=== PATIENT | male | born 1995 | race Caucasian/White ===

== ENCOUNTER 2017-09-07 01:29 | Inpatient (IN) | payer SELFPAY ==
[2017-09-07] MEDS ORDERED: ONDANSETRON 4 MG/2 ML VIAL IVP ONE (01:40)
[2017-09-07] MEDS ORDERED: NS 1,000 ML IV ONE (01:40)
--- NOTE | 2017-09-07 01:40 | EDPHY ---
H & P Stated Complaint: Blood in stool last 4 hours, lightheaded. HPI/ROS: HPI CHIEF COMPLAINT: Blood per rectum, lightheadedness, nausea vomiting HISTORY OF PRESENT ILLNESS: Patient otherwise healthy 22-year-old male, not on any anticoagulation, presents emergency room with blood per rectum. Patient reports dark blood per rectum. No black stools. He states that he had a bowel movement 6 times with mainly just blood. Very little stool. He also states he felt lightheaded and had an episode of nausea with vomiting. No blood. He denies any abdominal pain. States he has never had this before. States that he did have a hemorrhoid the blood but that was drops of bright red blood. Decided come the emergency room as he had persistent bleeding per rectum. Past Medical History: Denies medical history Past Surgical History: Denies surgical history Social History: Denies daily use of drugs alcohol tobacco. Family History: Noncontributory ROS REVIEW OF SYSTEMS: A comprehensive 10 point review of systems is otherwise negative aside from elements mentioned in the history of present illness. Exam Constitutional appears well nontoxic triage nursing summary reviewed, vital signs reviewed, awake/alert. Eyes normal conjunctivae and sclera, EOMI, PERRLA. HENT normal inspection, atraumatic, moist mucus membranes, no epistaxis, neck supple/ no meningismus, no raccoon eyes. Respiratory clear to auscultation bilaterally, normal breath sounds, no respiratory distress, no wheezing. Cardiovascular rate normal, regular rhythm, no murmur, no edema, distal pulses normal. Gastrointestinal soft, non-tender, no rebound, no guarding, normal bowel sounds, no distension, no pulsatile mass. Genitourinary no CVA tenderness. Musculoskeletal no midline vertebral tenderness, full range of motion, no calf swelling, no tenderness of extremities, no meningismus, good pulses, neurovascularly intact. Skin pink, warm, & dry, no rash, skin atraumatic. Neurologic awake, alert and oriented x 3, AAOx3, moves all 4 extremities equally, motor intact, sensory intact, CN II-XII intact, normal cerebellar, normal vision, normal speech. Psychiatric normal mood/affect. Heme/Lymph/Immune no lymphadenopathy. Differential Diagnosis: Includes but is not limited to in a particular order acute GI bleed, diverticular bleed, lower GI bleed, ulcer, hemorrhoid bleed Medical Decision Making: Plan for this patient IV establishment with blood draw , check H&H, rectal exam. Re-evaluation: Rectal exam: Bright red blood per rectum. No palpable mass. No internal or palpable hemorrhoids however removal of blood shows rather large amount of bright red blood. Blood work reviewed. H&H reviewed. Slightly low. Rectal exam showed rather large amount of blood on glove. Due to this patient be admitted for GI bleed. Will give a dose of Protonix Protonix strep in case his upper GI bleed. However patient remains hemodynamically stable does not endorse any epigastric pain. Most likely lower GI bleed. Source: Patient - Personal History Current Tetanus/Diphtheria Vaccine: Unsure Current Tetanus Diphtheria and Acellular Pertussis (TDAP): Unsure - Medical/Surgical History Hx Asthma: No Hx Chronic Respiratory Disease: No Hx Diabetes: No Hx Cardiac Disease: No Hx Renal Disease: No Hx Cirrhosis: No Hx Alcoholism: No Hx HIV/AIDS: No Hx Splenectomy or Spleen Trauma: No Other PMH: Hemhoids, ear tube surgeries. - Social History Smoking Status: Former smoker Constitutional: Initial Vital Signs Temperature (C) 36.6 C 09/07/17 01:32 Heart Rate 69 09/07/17 01:32 Respiratory Rate 18 09/07/17 01:32 Blood Pressure 118/59 L 09/07/17 01:32 O2 Sat (%) 98 09/07/17 01:32 O2 Delivery Mode Room Air Allergies/Adverse Reactions: tree nut Allergy (Severe, Verified 09/07/17 01:36) Anaphylaxis Home Medications: Medication Instructions Recorded Carboxymethylcellulose 1% [Refresh 1 drop EACHEYE DAILY PRN 09/07/17 Celluvisc (*)] EPINEPHrine [Epipen 0.3 MG] 0.3 mg IM ONCE PRN 09/07/17 Ibuprofen [Motrin (*)] 200 mg PO DAILY PRN 09/07/17 Multivitamins [Multivitamin (*)] 1 each PO DAILY 09/07/17 diphenhydrAMINE [Benadryl 25 MG 25 mg PO DAILY PRN 09/07/17 (*)] Medical Decision Making - Data Points Laboratory Results: Laboratory Results 09/07/17 01:48 09/07/17 01:48 Medications Given: Pantoprazole Sodium 80 mg/ (Sodium Chloride) 100 mls @ 10 mls/hr IV Q10H TARI Stop: 04/17/18 02:59 Last Admin: 09/07/17 13:38 Dose: 100 mls Sodium Chloride (Ns) 1,000 mls @ 100 mls/hr IV CONT TARI Stop: 03/06/18 04:44 Last Admin: 09/07/17 13:38 Dose: 1,000 mls Lorazepam (Ativan Injection) 0.5 - 1 mg IVP Q8HRS PRN PRN Reason: Anxiety, Unable to Take PO Stop: 03/06/18 04:42 Last Admin: 09/07/17 05:05 Dose: 1 mg Discontinued Medications Sodium Chloride (Ns) 1,000 mls @ 0 mls/hr IV EDNOW ONE; Wide Open PRN Reason: Protocol Stop: 09/07/17 01:41 Last Admin: 09/07/17 01:53 Dose: 1,000 mls Pantoprazole Sodium 40 mg/ (Sodium Chloride) 100 mls @ 200 mls/hr IV EDNOW ONE Stop: 09/07/17 03:19 Last Admin: 09/07/17 03:29 Dose: 100 mls Ondansetron HCl (Zofran) 4 mg IVP EDNOW ONE Stop: 09/07/17 01:41 Last Admin: 09/07/17 04:45 Dose: Not Given Polyethylene Glycol/Electrolytes (Gavilyte - G) 4,000 ml PO ONCE ONE Stop: 09/07/17 10:35 Last Admin: 09/07/17 11:43 Dose: 4,000 ml Departure - Departure Disposition: [facility] Inpatient Acute Clinical Impression: GI bleed Qualifiers: GI bleed type/associated pathology: unspecified gastrointestinal hemorrhage type Qualified Code(s): K92.2 - Gastrointestinal hemorrhage, unspecified Condition: Fair
[2017-09-07 01:58] LABS: PLATELET COUNT 381 10^3/uL (150-400)
[2017-09-07 02:07] LABS: INR 1.07 (0.83-1.16); PROTIME(PATIENT) 13.8 SEC (12.0-15.0)
[2017-09-07] MEDS ORDERED: PANTOPRAZOLE SODIUM 40 MG in NS 100 ML IV ONE (02:50)
[2017-09-07] MEDS ORDERED: PROMETHAZINE HCL 25 MG/ML INJ IVP PRN (04:43)
[2017-09-07] MEDS ORDERED: LORazepam 2 MG/ML INJ IVP PRN (04:43)
[2017-09-07] MEDS ORDERED: ONDANSETRON 4 MG/2 ML VIAL IVP PRN (04:43)
[2017-09-07] MEDS: PANTOPRAZOLE SODIUM 80 MG in NS 100 ML IV SCH ×3 (05:01→22:13)
[2017-09-07] MEDS: NS 1,000 ML IV SCH ×2 (05:01→13:38)
--- NOTE | 2017-09-07 05:30 | GHP ---
[f rep st] HISTORY AND PHYSICAL DATE OF ADMISSION: 09/07/2017 SOURCE: The patient provides history, appears reliable. Case discussed with ED provider and EMR reviewed. CHIEF COMPLAINT: Blood per rectum. HISTORY OF PRESENT ILLNESS: This is a very pleasant 22-year-old gentleman with no significant past medical history who presents to the emergency department today with complaints of sudden onset of bloody bowel movements. The patient reports approximately 9 o'clock he developed a sense of urgency, and went to the bathroom at work where he had 6 large volume pure frantz bloody dark bloody stools. The patient denies any abdominal pain or cramping. He does report some associated lightheadedness after several bowel movements. He also notes that he developed 1 episode of nausea and vomiting without any hematemesis. The patient reports any known sick contacts. He denies any shortness of breath or palpitations. The patient denies any fevers or chills. The patient without any recent travel or camping. REVIEW OF SYSTEMS: GENERAL: The patient denies any fevers or chills. SKIN: No rashes or sores. ENT: The patient denies any congestion, sore throat, but does complain of some dry mouth. EYES: The patient denies any acute changes in vision or ocular pain. CV: The patient denies any chest pain or palpitations. RESPIRATORY: No shortness of breath or cough. GI: Abdominal pain as noted above with 1 episode of nausea. : No dysuria or hematuria. MUSCULOSKELETAL: Denies any joint pain or myalgias. NEURO: The patient denies any numbness, tingling, focal weakness, or headache. Remainder of review of systems negative except as noted above. ALLERGIES: Tree nuts, the patient develops anaphylaxis. HOME MEDICATIONS: Multivitamin daily, Benadryl p.r.n., Advil p.r.n. PAST MEDICAL HISTORY: Significant for hemorrhoids. PAST SURGICAL HISTORY: Significant for bilateral tympanostomy tubes. FAMILY HISTORY: Paternal uncle with history of stomach cancer. Paternal grandfather and father with history of hypertension. SOCIAL HISTORY: The patient is employed. He denies any illicit drugs. He does smoke on a very rare occasion, as well as has a few drinks on a weekly basis, but nothing daily. CODE STATUS: Full. PHYSICAL EXAMINATION: VITAL SIGNS: On arrival, blood pressure 118/59, heart rate 69, respiratory rate 18, O2 saturation 98% on room air, temperature 36.6. Current vitals blood pressure 119/53, heart rate 68, respiratory rate 16, O2 saturation 96% on room air. GENERAL: No acute distress. Very pleasant, young adult male, is lying quietly in bed. HEAD: Normocephalic, atraumatic. EYES: Extraocular muscles intact. Pupils equal, round, slightly decreased reactivity to light bilaterally but symmetric. No scleral icterus or conjunctival injection. ENT: Mucous membranes appear slightly dry. No pharyngeal erythema or exudates. Dentition intact. NECK: Supple. Trachea midline. CV: Regular rate and rhythm. No murmurs, rubs, or gallops appreciated. RESPIRATORY: Lungs clear to auscultation bilaterally. No wheezes, rales, or rhonchi. ABDOMEN: Hypoactive bowel sounds. Nontender to palpation. : No suprapubic tenderness to palpation. No Mortensen catheter in place. MUSCULOSKELETAL: Strength grossly intact. Moves all extremities. Strength 5/5 in upper and lower extremities. NEURO: Grossly nonfocal. No facial drooping. Moves all extremities. Sensation is intact. PSYCH: The patient is pleasant, cooperative , and without evidence of anxiety. LABORATORY STUDIES: WBC is 9.62, H and H 12.7 and 37.4, MCV of 92.3, platelet count is 381. PT is 13.8, INR 1.07, PTT is 22.6. Sodium is 140, potassium 4.1, chloride 103, CO2 is 25, BUN 15, creatinine is 0.9 , GFR greater than 60, glucose 112, calcium 9.3, total bilirubin 0.6, ALT is 22 , AST is 22, alkaline phosphatase is 65, total protein 6.4, albumin is 4.2, lipase is 110. ASSESSMENT AND PLAN: Ofelia 22-year-old gentleman, who presents with complaints of acute onset of gastrointestinal bleeding. 1. Lower gastrointestinal bleeding suspected with dark frantz blood. The patient with previous history of hemorrhoids. Differential diagnosis including hemorrhoid, arteriovenous malformation, diverticular bleed. Less likely colitis and lower suspicion for upper gastrointestinal bleeding given lack of report of melena and acute onset of symptoms. The patient has not had any further episodes since arrival to the floor. We will continue to monitor, repeat a hemoglobin and hematocrit, given the patient has been symptomatic. Further discussions with Gastroenterology tomorrow pending the patient's hemoglobin and hematocrit and further episodes to consider possibly an outpatient evaluation as current symptoms have stopped. For now, the patient will remain n.p.o. while we await repeat blood count and Gastroenterology recommendations. 2. Acute blood loss anemia. Hemoglobin and hematocrit are less than upper limits of normal. The patient had reported some symptoms with acute loss of blood. We will continue monitor hemoglobin and hematocrit and do not anticipate any need for transfusion at this time. 3. Fluid, electrolyte, nutrition. Continue with intravenous fluids overnight. Electrolyte replacement p.r.n. Hold off on diet pending further discussions with Gastroenterology. 4. Prophylaxis. Sequential compression devices. Holding anticoagulation in the setting of acute bleeding. Protonix was given in the emergency department x1. We will hold at this time given the patient without symptoms. 5. Code status. Full. 6. Disposition. The patient admitted to observation on the medical floor at this time pending repeat laboratory testing and Gastroenterology recommendations. /[id number]/MODL MTDD
--- NOTE | 2017-09-07 09:23 | HOSPPROG ---
Hospitalist Progress Note Assessment/Plan: Patient is a 22-year-old gentleman who presented the emergency room with sudden onset of bloody bowel movements. He developed a sense of urgency andWsuch 6 large frantz blood stools. Today is my 1st encounter with the patient. Chart reviewed. Spoke with Gastroenterology who will see the patient today. will continue NPO status. * likely lower gastrointestinal bleed with dark frantz blood. -hemoglobin hematocrit have trended down -will continue NPO status -only significant history is hemorrhoids * acute blood loss anemia -will need an endoscopy, possible colonoscopy/ likely tomorrow. * plan. GI to see him today. Subjective: Vlad has no c/o pain. Objective: Vital Signs Temp Pulse Resp BP Pulse Ox 36.6 C 128 H 16 119/58 L 96 09/07/17 08:06 09/07/17 08:06 09/07/17 08:06 09/07/17 08:06 09/07/17 08:06 Laboratory Results 09/07/17 05:22 09/06/17 09/07/17 09/08/17 05:59 05:59 05:59 Intake Total 1100 Balance 1100 PT 13.8 SEC (12.0-15.0) 09/07/17 01:48 INR 1.07 (0.83-1.16) 09/07/17 01:48 - Physical Exam Constitutional: no apparent distress, appears nourished, not in pain Eyes: PERRL Ears, Nose, Mouth, Throat: hearing normal Respiratory: no respiratory distress Skin: warm Musculoskeletal: full muscle strength Neurologic: AAOx3 Psychiatric: interacting appropriately ICD10 Worksheet Patient Problems: Problems Problem Status Onset GI bleed Acute
[2017-09-07] MEDS ORDERED: PEG 3350/NA SULF,BICARB,CL/KCL (GAVILYTE-G) 4000 ML BTL PO ONE (10:34)
--- NOTE | 2017-09-07 11:15 | GCON ---
[f rep st] CONSULTATION REFERRING PHYSICIAN: Antonieta Dixon NP REASON FOR CONSULTATION: Rectal bleeding. HISTORY OF PRESENT ILLNESS: Briefly, I was asked by Antonieta Dixon to see the patient for the evalu ation of rectal bleeding. He is a 22-year-old healthy male who presented to the emergency room after the sudden onset of diarrhea. He had urgency, abdominal cramping, and 6 large, frankly bloody bowel movements. He reports no prior history of bleeding. He reports he felt well on the day prior to hi s admission. At that time, he also noticed some fatigue and weakness. He is on no blood-thinning medicines. He does not take any nonsteroidal anti-inflammatory therapies. He denies sick contacts. He has had no fevers, chills or sweats. He has had no nausea or vomiting . He denies any recent travel, unusual food choices, or exposure to unsanitary conditions. REVIEW OF SYSTEMS: A complete 10-point review was undertaken with the patient and is negative, excep t for the pertinent positives and negatives in the History of Present Illness. ALLERGIES: Tree nuts, but no medication allergies. MEDICATIONS: Home medicines were Advil as needed, Benadryl as needed, and a multivitamin. PAST MEDICAL HISTORY: Includes hemorrhoids, for which he has had scant rectal bleeding periodically. PAST SURGICAL HISTORY: Includes tympanostomy tubes. FAMILY HISTORY: He has had an uncle with stomach cancer. He has a history of heart disease in his p aternal line. SOCIAL HISTORY: He does not use drugs. He smokes rarely. He drinks on a weekly basis, but not ye y. PHYSICAL EXAM: GENERAL: This is a well-developed male, in no apparent distress. HEENT: His pupils are equal, round, reactive to light and accommodation. His sclerae are nonicteric. His oropharynx is clear. NECK: Supple, without lymphadenopathy. HEART: Regular, without murmur. LUNGS: His dania ath sounds are equal bilaterally, with good respiratory effort. ABDOMEN: Soft, nontender, with norm oactive bowel sounds. EXTREMITIES: Free of cyanosis, clubbing, and edema. NEURO: Grossly nonfocal . SKIN: Warm and dry. MUSCULOSKELETAL: His joints show no arthritis. PSYCH: His psych exam reve als normal mood and affect. LABORATORY TESTING: White count of 9.6, hemoglobin of 12.7, hematocrit of 37.4, which has fallen ove rnight to a hemoglobin of 10.7 and hematocrit of 32.0. The patient reports no prior history of anemi a. Comprehensive metabolic panel was normal. IMPRESSION/RECOMMENDATIONS: The patient has had acute rectal bleeding with an associated anemia. He has no prior history. Differential diagnosis might include arteriovenous malformation, diverticula, Meckel's, even upper gastrointestinal sources of bleeding. Given his anemia, ongoing symptoms, I re commend he remain in the hospital for an endoscopic evaluation. We will plan for upper and lower end oscopy to occur. Pending the results of the upper and lower endoscopy, we can proceed with small-bow el evaluation if needed. Tagged red cell scan, IR interventions, etc., are also potentially useful m aneuvers, pending the results of endoscopic evaluation. /[id number]/MODL
--- NOTE | 2017-09-07 14:12 | ASMTCMCOM ---
CM Note CM Note Notes: Pt. is a 22-year-old man admitted w/ bloody stools and acute blood loss anemia. Pt. w/ hx. hemorrhoids. 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 Kenaytta/Radha plans to assess Pt. for Medicaid benefits. Currently in self-pay status. Anticipate independent d/c when ready. CM available should d/c POC change. Date Signed: 09/07/2017 02:11 PM Electronically Signed By:Alycia Baker LCSW
--- NOTE | 2017-09-07 14:12 | ASMTCMCOM ---
CM Note CM Note Notes: Pt. is a 22-year-old man admitted w/ bloody stools and acute blood loss anemia. Pt. w/ hx. hemorrhoids. 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 Kenyatta/Radha plans to assess Pt. for Medicaid benefits. Currently in self-pay status. Anticipate independent d/c when ready. CM available should d/c POC change. Date Signed: 09/07/2017 02:11 PM Electronically Signed By:Alycia Baker LCSW
[2017-09-08] MEDS: NS 1,000 ML IV SCH ×2 (00:31→10:37)
[2017-09-08] MEDS: PANTOPRAZOLE SODIUM 80 MG in NS 100 ML IV SCH ×3 (00:32→20:04)
--- NOTE | 2017-09-08 04:52 | HOSPPROG ---
Hospitalist Progress Note Assessment/Plan: Hospitalist Night Float Note Paged by RN. reporting decline in pt H/H. Patient refused transfusion and arrived to bedside to discuss further with patient. He is Sabianism and cannot accept any blood products. Reviewed patient current h/h and reassured at this time VS are stable. options at this time are for IV iron. I did not offer EPO to patient as I am awaiting to verify with pharmacy synthetic (nonalbumin) formulary. At this time will plan to repeat H/H. pt currently asymptomatic but advised further decline will warrant consideration for treatment options. Patient completed prep and anticipate colonoscopy this AM. Patient father at bedside and questions answered from both patient and father. Objective: Vital Signs Temp Pulse Resp BP Pulse Ox 36.9 C 92 16 105/45 L 98 09/08/17 03:24 09/08/17 03:24 09/08/17 03:24 09/08/17 03:24 09/08/17 03:24 Laboratory Results 09/08/17 01:30 09/06/17 09/07/17 09/08/17 05:59 05:59 05:59 Intake Total 1100 5265 Balance 1100 5265 PT 13.8 SEC (12.0-15.0) 09/07/17 01:48 INR 1.07 (0.83-1.16) 09/07/17 01:48 ICD10 Worksheet Patient Problems: Problems Problem Status Onset GI bleed Acute
[2017-09-08] MEDS ORDERED: LR 1,000 ML IV ONE (06:57)
--- NOTE | 2017-09-08 07:35 | PDANEPAE ---
ANE History of Present Illness 22 year old male with GI bleed presents for endoscopy and colonoscopy. ANE Past Medical History - Cardiovascular History Hx Hypertension: No Hx Arrhythmias: No Hx Chest Pain: No Hx Coronary Artery / Peripheral Vascular Disease: No Hx CHF / Valvular Disease: No Hx Palpitations: No - Pulmonary History Hx COPD: No Hx Asthma/Reactive Airway Disease: No Hx Recent Upper Respiratory Infection: No Hx Oxygen in Use at Home: No Hx Sleep Apnea: No Sleep Apnea Screening Result - Last Documented: Negative - Endocrine History Hx Diabetes: No Hypothyroid: No Hyperthyroid: No Obesity: no - Renal History Hx Renal Disorders: No - Liver History Hx Hepatic Disorders: No - Neurological & Psychiatric Hx Hx Neurological and Psychiatric Disorders: No - Cancer History Hx Cancer: No - GI History GERD: no Hx Gastrointestinal Disorders: Yes Gastrointestinal History Comment: GI bleed - Chronic Pain History Chronic Pain: No ANE Review of Systems Review of systems is: negative Review of Systems: - Exercise capacity Exercise capacity: >=4 METS ANE Patient History - Allergies Allergies/Adverse Reactions: tree nut Allergy (Severe, Verified 09/07/17 01:36) Anaphylaxis NO BLOOD PRODUCTS Allergy (Uncoded 09/08/17 04:35) - Home Medications Home medications: home medication list seen and reviewed Home Medications: Carboxymethylcellulose 1% [Refresh Celluvisc (*)] 1 drop EACHEYE DAILY PRN 09/07 [Last Taken Unknown] EPINEPHrine [Epipen 0.3 MG] 0.3 mg IM ONCE PRN 09/07/17 [Last Taken Unknown] Ibuprofen [Motrin (*)] 200 mg PO DAILY PRN 09/07/17 [Last Taken Unknown] Multivitamins [Multivitamin (*)] 1 each PO DAILY 09/07/17 [Last Taken Unknown] diphenhydrAMINE [Benadryl 25 MG (*)] 25 mg PO DAILY PRN 09/07/17 [Last Taken Unknown] - NPO status NPO Status: no food or drink >8 hours NPO Since - Liquids (Date): 09/08/17 NPO Since - Liquids (Time): 05:50 NPO Since - Solids (Date): 09/06/17 NPO Since - Solids (Time): 12:00 - Anes Hx Anes Hx: no prior problems - Smoking Hx Smoking Status: Former smoker Marijuana use: Yes - Alcohol Use Alcohol Use: Occasionally - Family Anes Hx Family Anes Hx: neg - N/A ANE Labs/Vital Signs - Labs Result Diagrams: 09/08/17 05:55 09/07/17 01:48 - Vital Signs Vital Signs: reviewed preoperatively; see RN documention for details Blood Pressure: 147/42 Heart Rate: 88 Respiratory Rate: 14 O2 Sat (%): 98 Height: 182.88 cm Weight: 83.915 kg ANE Physical Exam - Airway Neck exam: FROM Mallampati Score: Class 3 Mouth exam: small mouth opening - Pulmonary Pulmonary: no respiratory distress - Cardiovascular Cardiovascular: regular rate and rhythym - ASA Status ASA Status: II ANE Anesthesia Plan Anesthesia Plan: GA with mask
[2017-09-08] MEDS ORDERED: PROPOFOL/EMULSION 500 MG/50 ML BOTTLE IV ONE ×2 (07:42→14:42)
[2017-09-08] MEDS ORDERED: NALOXONE HCL 0.4 MG/ML INJ IVP PRN ×2 (07:45→15:03)
[2017-09-08] MEDS ORDERED: fentaNYL 100 MCG/2 ML INJ IVP PRN ×2 (07:51→15:03)
[2017-09-08] MEDS ORDERED: LR 500 ML IV PRN ×2 (07:51→15:03)
[2017-09-08] MEDS ORDERED: PROPOFOL 200 MG/20 ML VIAL ONE (08:17)
--- NOTE | 2017-09-08 08:34 | GIREPORT ---
[facility] Surgical Services - Endoscopy Department Patient Name: Vlad Thomas Procedure Date: 09/08/2017 7:49 AM Patient Type: Inpatient Attending MD/ ER Physician: Katja Vance MD Procedure: Upper GI endoscopy Indications: Acute post hemorrhagic anemia, Hematochezia Providers: Katja Vance MD Medicines: Sedation Administered by an Anesthesia Professional Complications: No immediate complications. Description of Procedure: After obtaining informed consent, the endoscope was passed under direct vision. Throughout the procedure, the patient's blood pressure, pulse, and oxygen saturations were monitored continuously. The Endoscope was intro duced through the mouth, and advanced to the third part of duodenum. The uppe r GI endoscopy was accomplished without difficulty. The patient tolerated th e procedure well. Findings: The examined esophagus was normal. The entire examined stomach was normal. The examined duodenum was normal. Estimated Blood Loss: Estimated blood loss: none. Post Op Diagnosis: - Normal esophagus. - Normal stomach. - Normal examined duodenum. - No specimens collected. Recommendation: - Return patient to [facility]. - Perform a colonoscopy today. Attending Participation: I personally performed the entire procedure. Electronically Sigened by Katja Vance MD> Katja Vance MD 09/08/2017 8:33:25 AM This report has been signed electronically.Katja Vance MD Number of Addenda: 0 Note Initiated On: 09/08/2017 7:49 AM Total Procedure Duration Time 0 hours 4 minutes 45 seconds [email or web address]
--- NOTE | 2017-09-08 08:34 | GIREPORT ---
[facility] Surgical Services - Endoscopy Department Patient Name: Vlad Thomas Procedure Date: 09/08/2017 7:49 AM Patient Type: Inpatient Attending MD/ ER Physician: Katja Vance MD Procedure: Upper GI endoscopy Indications: Acute post hemorrhagic anemia, Hematochezia Providers: Katja Vance MD Medicines: Sedation Administered by an Anesthesia Professional Complications: No immediate complications. Description of Procedure: After obtaining informed consent, the endoscope was passed under direct vision. Throughout the procedure, the patient's blood pressure, pulse, and oxygen saturations were monitored continuously. The Endoscope was intro duced through the mouth, and advanced to the third part of duodenum. The uppe r GI endoscopy was accomplished without difficulty. The patient tolerated th e procedure well. Findings: The examined esophagus was normal. The entire examined stomach was normal. The examined duodenum was normal. Estimated Blood Loss: Estimated blood loss: none. Post Op Diagnosis: - Normal esophagus. - Normal stomach. - Normal examined duodenum. - No specimens collected. Recommendation: - [facility]. - Perform a colonoscopy today. Attending Participation: I personally performed the entire procedure. Electronically Sigened by Katja Vance MD> Katja Vance MD 09/08/2017 8:33:25 AM This report has been signed electronically.Katja Vance MD Number of Addenda: 0 Note Initiated On: 09/08/2017 7:49 AM Total Procedure Duration Time 0 hours 4 minutes 45 seconds [id number]}
--- NOTE | 2017-09-08 08:34 | GIREPORT ---
Formerly [facility] Surgical Services - Endoscopy Department Patient Name: Vlad Thomas Procedure Date: 09/08/2017 7:49 AM Patient Type: Inpatient Attending MD/ ER Physician: Katja Vance MD Procedure: Upper GI endoscopy Indications: Acute post hemorrhagic anemia, Hematochezia Providers: Katja Vance MD Medicines: Sedation Administered by an Anesthesia Professional Complications: No immediate complications. Description of Procedure: After obtaining informed consent, the endoscope was passed under direct vision. Throughout the procedure, the patient's blood pressure, pulse, and oxygen saturations were monitored continuously. The Endoscope was intro duced through the mouth, and advanced to the third part of duodenum. The uppe r GI endoscopy was accomplished without difficulty. The patient tolerated th e procedure well. Findings: The examined esophagus was normal. The entire examined stomach was normal. The examined duodenum was normal. Estimated Blood Loss: Estimated blood loss: none. Post Op Diagnosis: - Normal esophagus. - Normal stomach. - Normal examined duodenum. - No specimens collected. Recommendation: - [facility]. - Perform a colonoscopy today. Attending Participation: I personally performed the entire procedure. Electronically Sigened by Katja Vance MD> Katja Vance MD 09/08/2017 8:33:25 AM This report has been signed electronically.Katja Vance MD Number of Addenda: 0 Note Initiated On: 09/08/2017 7:49 AM Total Procedure Duration Time 0 hours 4 minutes 45 seconds [id number]}
--- NOTE | 2017-09-08 08:40 | GIREPORT ---
[facility] Surgical Services - Endoscopy Department Patient Name: Vlad Thomas Procedure Date: 09/08/2017 8:01 AM Patient Type: Inpatient Attending MD/ ER Physician: Katja Vance MD Procedure: Colonoscopy Indications: Hematochezia, Acute post hemorrhagic anemia Providers: Katja Vance MD Medicines: Sedation Administered by an Anesthesia Professional Complications: No immediate complications. Description of Procedure: After obtaining informed consent, the scope was passed under direct vis ion. Throughout the procedure, the patient's blood pressure, pulse, and oxyg en saturations were monitored continuously. The Colonoscope with irrigatio n channel was introduced through the anus and advanced to 15 cm into the ileum. The colonoscopy was performed without difficulty. The patient tolerated the procedure well. The quality of the bowel preparation was good. The ileocecal valve, appendiceal orifice, and rectum were photographed. Findings: Red blood was found in the entire colon. Normal mucosa was found in the entire colon. The entire examined ileum lumen contained red blood. The entire examined ileum mucosa appeared normal. Estimated Blood Loss: Estimated blood loss: none. Post Op Diagnosis: - Blood in the entire examined colon. - Normal mucosa in the entire examined colon. - Blood in the entire examined ileum. - The examined portion of the ileum was normal. - No specimens collected. Recommendation: - [facility]. - Given blood in entire colon and in terminal ileum suspect small bowel source of bleeding. - Do a GI bleeding (tagged RBC) scan today. Attending Participation: I personally performed the entire procedure. Electronically Sigened by Katja Vance MD> Katja Vance MD 09/08/2017 8:40:22 AM This report has been signed electronically.Katja Vance MD Number of Addenda: 0 Note Initiated On: 09/08/2017 8:01 AM Total Procedure Duration Time 0 hours 17 minutes 25 seconds [id number]
[2017-09-08] MEDS: ACETAMINOPHEN 325 MG TAB PO PRN ×2 (10:35→22:50)
--- NOTE | 2017-09-08 13:01 | HOSPPROG ---
Hospitalist Progress Note Assessment/Plan: Patient is a 22-year-old gentleman who presented the emergency room with sudden onset of bloody bowel movements. He developed a sense of urgency and had 6 large frantz blood stools. *GI bleed/acute blood loss -s/p upper GI endoscopy/stable -s/p colonoscopy/ patient has red blood in entire colon, ileum -to get a tagged rbc scan today -patient is a L[employer]/doesn't recieve blood products -tag study pending/reviewed prelim results w radiology/ the bleeding is possibly around the 3rd/4th portion of the duodenum Plan:our hospital doesn't carry synthetic blood products/ if cont to bleed can consider TXA 1 gm over 10 minutes, hen 1 gm over 8 hours, and DDAVP 0.3 mg/kg >45 minutes reviewing care and talking with patient and his father. The patient will require another midnight stay making him IP status/he is bleeding. Subjective: Vlad is c/o headache. Objective: Vital Signs Temp Pulse Resp BP Pulse Ox 36.9 C 84 14 129/56 H 98 09/08/17 09:26 09/08/17 11:47 09/08/17 11:47 09/08/17 11:47 09/08/17 11:47 Laboratory Results 09/08/17 05:55 09/07/17 09/08/17 09/09/17 05:59 05:59 05:59 Intake Total 1100 5265 Balance 1100 5265 PT 13.8 SEC (12.0-15.0) 09/07/17 01:48 INR 1.07 (0.83-1.16) 09/07/17 01:48 - Physical Exam Constitutional: No not in pain Eyes: PERRL Ears, Nose, Mouth, Throat: hearing normal Cardiovascular: regular rate and rhythym, No tachycardia Respiratory: no respiratory distress Skin: warm, other (pale and yellowish) Musculoskeletal: no muscle tenderness Neurologic: AAOx3 Psychiatric: interacting appropriately ICD10 Worksheet Patient Problems: Problems Problem Status Onset GI bleed Acute
--- NOTE | 2017-09-08 13:17 | POSTANESTH ---
Post Anesthetic Evaluation Cardiovascular Status: Normal, Stable, Similar to Pre-Op Cond Respiratory Status: Normal, Stable, Similar to Pre-op Cond. Level of Consciousness/Mental Status: Can Participate in Eval, Alert and Oriented Pain Control: Adequate, Prn Tx Ordered Nausea/Vomiting Control: Adequate, Prn Tx Ordered Complications Possibly Related to Anesthesia: None Noted
[2017-09-08] MEDS ORDERED: fentaNYL 100 MCG/2 ML INJ ONE ×2 (14:44→16:31)
[2017-09-08] MEDS ORDERED: EPINEPHrine 1 MG/10 ML SYR IVP ONE (14:57)
[2017-09-08] MEDS ORDERED: NS 500 ML IV PRN (15:03)
[2017-09-08] MEDS ORDERED: MEPERIDINE 25 MG/ML SYR IVP PRN (15:03)
[2017-09-08] MEDS ORDERED: LABETALOL HCL 50 MG/10 ML SYR IVP PRN (15:03)
[2017-09-08] MEDS ORDERED: ALBUTEROL 3 ML DEYVIAL IH PRN (15:03)
[2017-09-08] MEDS ORDERED: HYDROmorphONE/DILAUDID 1 MG/ML INJ IVP PRN (15:03)
[2017-09-08] MEDS ORDERED: PROMETHAZINE HCL 25 MG/ML INJ IVP PRN (15:03)
[2017-09-08] MEDS ORDERED: DEXAMETHASONE 4 MG/ML VIAL IVP PRN (15:03)
[2017-09-08] MEDS ORDERED: METOCLOPRAMIDE 10 MG/2 ML VIAL IVP PRN (15:03)
--- NOTE | 2017-09-08 15:08 | PDANEPAE ---
ANE History of Present Illness 22 year old with anemia. EGD and Colon today is negative. TAG study positive. Here for repeat EGD. ANE Past Medical History - Cardiovascular History Hx Hypertension: No Hx Arrhythmias: No Hx Chest Pain: No Hx Coronary Artery / Peripheral Vascular Disease: No Hx CHF / Valvular Disease: No Hx Palpitations: No - Pulmonary History Hx COPD: No Hx Asthma/Reactive Airway Disease: No Hx Recent Upper Respiratory Infection: No Hx Oxygen in Use at Home: No Hx Sleep Apnea: No Sleep Apnea Screening Result - Last Documented: Negative - Endocrine History Hx Diabetes: No Hypothyroid: No Hyperthyroid: No Obesity: no - Renal History Hx Renal Disorders: No - Liver History Hx Hepatic Disorders: No - Neurological & Psychiatric Hx Hx Neurological and Psychiatric Disorders: No - Cancer History Hx Cancer: No - GI History GERD: no Hx Gastrointestinal Disorders: Yes Gastrointestinal History Comment: GI bleed - Chronic Pain History Chronic Pain: No ANE Review of Systems Review of Systems: ANE Patient History - Allergies Allergies/Adverse Reactions: tree nut Allergy (Severe, Verified 09/07/17 01:36) Anaphylaxis NO BLOOD PRODUCTS Allergy (Uncoded 09/08/17 04:35) - Home Medications Home Medications: Carboxymethylcellulose 1% [Refresh Celluvisc (*)] 1 drop EACHEYE DAILY PRN 09/07 [Last Taken Unknown] EPINEPHrine [Epipen 0.3 MG] 0.3 mg IM ONCE PRN 09/07/17 [Last Taken Unknown] Ibuprofen [Motrin (*)] 200 mg PO DAILY PRN 09/07/17 [Last Taken Unknown] Multivitamins [Multivitamin (*)] 1 each PO DAILY 09/07/17 [Last Taken Unknown] diphenhydrAMINE [Benadryl 25 MG (*)] 25 mg PO DAILY PRN 09/07/17 [Last Taken Unknown] - NPO status NPO Since - Liquids (Date): 09/08/17 NPO Since - Liquids (Time): 05:50 NPO Since - Solids (Date): 09/06/17 NPO Since - Solids (Time): 12:00 - Smoking Hx Smoking Status: Former smoker - Alcohol Use Alcohol Use: Occasionally ANE Labs/Vital Signs - Labs Result Diagrams: 09/08/17 05:55 09/07/17 01:48 - Vital Signs Blood Pressure: 129/56 Heart Rate: 84 Respiratory Rate: 14 O2 Sat (%): 98 Height: 182.88 cm Weight: 83.915 kg ANE Physical Exam - Airway Mallampati Score: Class 1 Mouth exam: normal dental/mouth exam - Pulmonary Pulmonary: no respiratory distress - Cardiovascular Cardiovascular: regular rate and rhythym - ASA Status ASA Status: II ANE Anesthesia Plan Anesthesia Plan: GA with mask
--- NOTE | 2017-09-08 15:20 | GIREPORT ---
Formerly [facility] Surgical Services - Endoscopy Department Patient Name: Vlad Thomas Procedure Date: 09/08/2017 2:51 PM Patient Type: Inpatient Attending MD/ ER Physician: Katja Vance MD Procedure: Small bowel enteroscopy Indications: Hematochezia, GI bleeding source not documented by previous UGI endosco py, GI bleeding source not documented by previous colonoscopy, Obscure gastrointestinal bleeding, Gastrointestinal bleeding of unknown origin, Abnormal Tagged Cell Scan Providers: Katja Vance MD Complications: No immediate complications. Description of Procedure: After obtaining informed consent, the endoscope was passed under direct vision. Throughout the procedure, the patient's blood pressure, pulse, and oxygen saturations were monitored continuously. The Colonoscope was introduced through the mouth, and advanced to the mid-jejunum. After obtaining informed consent, the endoscope was passed under direct visio n. Throughout the procedure, the patient's blood pressure, pulse, and oxyg en saturations were monitored continuously.The small bowel enteroscopy was accomplished without difficulty. The patient tolerated the procedure we ll. Findings: The esophagus was normal. The stomach was normal. There was no evidence of significant pathology in the entire examined duodenum. There was no evidence of significant pathology in the entire examined portion of jejunum. Estimated Blood Loss: Estimated blood loss: none. Post Op Diagnosis: - Normal esophagus. - Normal stomach. - Normal examined duodenum. - The examined portion of the jejunum was normal. - No specimens collected. - Normal SBE examination to 150cm from the incisors. Recommendation: - [facility]. - Refer to an interventional radiologist today. Attending Participation: I personally performed the entire procedure. Katja Vance MD Katja Vance MD 09/08/2017 3:20:01 PM This report has been signed electronicallyDaus MD Pinky Number of Addenda: 0 Note Initiated On: 09/08/2017 2:51 PM [email or web address]
[2017-09-08 16:23] LABS: INR 1.21 (0.83-1.16); PROTIME(PATIENT) 15.3 SEC (12.0-15.0)
[2017-09-08] MEDS ORDERED: MIDAZOLAM 2 MG/2 ML VIAL ONE (16:30)
[2017-09-08] MEDS ORDERED: NALOXONE HCL 0.4 MG/ML INJ ONE (16:30)
[2017-09-08] MEDS ORDERED: FLUMAZENIL 0.5 MG/5 ML MDV IVP ONE (16:30)
[2017-09-08] MEDS ORDERED: GLUCAGON,HUMAN RECOMBINANT 1 MG VIAL ONE ×4 (17:29→18:23)
[2017-09-08] MEDS ORDERED: ALTEPLASE 2 MG VIAL ONE (18:09)
[2017-09-08] MEDS ORDERED: HEPARIN 10,000 UNIT/10 ML MDV ONE (18:10)
--- NOTE | 2017-09-08 19:20 | POSTOPPROG ---
Post Op Note Date of Operation: 09/08/17 Surgeon: Ted Chiu Anesthesia: IV Sedation Pre-op Diagnosis: Gastrointestinal bleeding Post-op Diagnosis: Same Indication: Unable to locate bleeding site endoscopically Procedure: 3-vessel mesenteric arteriography, with IA lytic provocation Findings: Normal. Inf/Abcess present in the surg proc area at time of surgery?: No EBL: Minimal Complications: 0. Drains: Other (Starclose right groin for hemostasis.)
[2017-09-08] MEDS ORDERED: NITROGLYCERIN/D5W 50 MG/250 ML BOTTLE IV ONE (20:37)
[2017-09-08] MEDS ORDERED: IOPAMIDOL (ISOVUE-300) 100 ML BTL ONE (20:37)
[2017-09-08] MEDS ORDERED: IOPAMIDOL (ISOVUE-370) 150 ML BTL IV ONE (20:37)
--- NOTE | 2017-09-08 21:22 | HOSPPROG ---
Hospitalist Progress Note Assessment/Plan: Hospitalist PM note. I met with the pt, his father, and the patients nurse. IR did not find e/o active bleeding. His Hgb is low and is 5.4. This has been checked twice and has remained stable. He looks pale, his HR is in the 90's and BP is stable in the 120's. He want to avoid blood transfusion unless he is almost . He defines this by saying he wants the transfusion when "he is unconscious". We discussed that it may be in the best interest to get blood transfusion sooner if he has recurrence of bleed but that he can make that decision based on the clinical information available. If he becomes tachycardic or hypotensive, then he may consider a blood transfusion. If he gets to the point that he is unable to make a decision, his father will make it. He currently has some abdominal discomfort. He thinks he will have a BM soon. VS per above on RA RRR CTA B S/NT/ND #Acute GI bleed #Severe blood loss anemia Plan: -hold transfusion per above -There is a possibility that the etiology is a Meckel's Diverticulum. Will await further reccs from GI and IR in regards to further imaging to prove this. -Will repeat another H/H in 2 hours. If stable, can space out checking or check in the am. If drops, will need to discuss with patient plan going forward -Continue with all current meds/diet -If he is stable tomorrow, we will need to discuss options for accelerating production of RBC's to include Iron, EPO, etc. -Full code Additional 35 minutes of critical care time spent on direct patient mgmt and coordination of care. Objective: Vital Signs Temp Pulse Resp BP Pulse Ox 36.8 C 79 20 119/44 L 95 09/08/17 20:08 09/08/17 20:08 09/08/17 20:08 09/08/17 20:08 09/08/17 20:08 Laboratory Results 09/08/17 19:40 09/07/17 09/08/17 09/09/17 05:59 05:59 05:59 Output Total 800 Balance -800 PT 15.3 SEC (12.0-15.0) H 09/08/17 15:45 INR 1.21 (0.83-1.16) H 09/08/17 15:45 ICD10 Worksheet Patient Problems: Problems Problem Status Onset GI bleed Acute
[2017-09-09] MEDS ORDERED: SODIUM FERRIC GLUCONAT/SUCROSE 125 MG in NS 100 ML IV ONE (02:36)
--- NOTE | 2017-09-09 03:03 | HOSPPROG ---
Hospitalist Progress Note Assessment/Plan: Hospitalist Night Float Note Notified by RN regarding patient continued drop in h/h now less than 5/15. Patient bPs low normal and HR stable. Reviewed with patient he still does not want whole blood products. reviewed with patient alternative options including iron and epo (on formulary does contain albumin). Patient is amenable to considering all other options except whole blood at this time. Venofer ordered. benadryl prn. Continue to monitor h/h. Objective: Vital Signs Temp Pulse Resp BP Pulse Ox 36.8 C 79 19 108/43 L 97 09/09/17 00:00 09/09/17 02:00 09/09/17 02:00 09/09/17 02:00 09/09/17 02:00 Laboratory Results 09/09/17 02:05 09/07/17 09/08/17 09/09/17 05:59 05:59 05:59 Intake Total 640 Output Total 800 Balance -160 PT 15.3 SEC (12.0-15.0) H 09/08/17 15:45 INR 1.21 (0.83-1.16) H 09/08/17 15:45 ICD10 Worksheet Patient Problems: Problems Problem Status Onset GI bleed Acute
[2017-09-09] MEDS: ACETAMINOPHEN 325 MG TAB PO PRN ×2 (03:28→14:07)
[2017-09-09] MEDS: PANTOPRAZOLE SODIUM 80 MG in NS 100 ML IV SCH ×3 (07:00→21:15)
[2017-09-09] MEDS: NS 1,000 ML IV SCH ×2 (12:26→23:08)
--- NOTE | 2017-09-09 14:28 | HOSPPROG ---
Hospitalist Progress Note Assessment/Plan: DIAGNOSES: -ACUTE GI BLEED UNKOWN LOCATION OR LESION, ongoing bleeding -ACUTE SEVERE BLOOD LOSS ANEMIA WITH HYPOTENSION, HIGH RISK OF COMPLICATION -s/p 3 units RBCs 09/09 am I have reviewed in detail with Vida Cox, and Teena The patient continues to have significant acute bleeding. Fortunately he is now accepting transfusion. We still have no source IDd. Dr Chiu has recommended getting a Meckel's scan, though by imaging today there is still too much tag present. We will attempt a scan either way and if not productive can repeat tomorrow. PLANS: -continue careful monitoring of hemodynamics, blood counts -will attempt meckel's divertciulum scan but may be obscured by prior tag -further transfusions may be indicated -Dr Dickinson prepared to take pt to OR if bleeding does not stop or if instability persists or worsens -if no meckel's, may need to reattempt angio/embolism SUBJECTIVE: headahce reasolved no angina, sob, nausea, abd pain, fever OBJECTIVE: vitals: this am became hypotensive syst 80s, now better after transfusion of 3 units RBCs card monitor: NSR exam: (this is after 3 units RBCs given this am) alert oriented mildly anxious skin warm dry good cap refill resps easy lungs clear heart regular abd soft nondistended nontender no edema no brusing Hg was down to 4 this am, now at 7 after three units rbcs Objective: Vital Signs Temp Pulse Resp BP Pulse Ox 36.3 C 84 14 130/55 H 100 09/09/17 14:00 09/09/17 14:00 09/09/17 14:00 09/09/17 14:00 09/09/17 14:00 Laboratory Results 09/09/17 12:25 09/09/17 06:20 09/08/17 09/09/17 09/10/17 06:59 06:59 06:59 Intake Total 2103.4 Output Total 800 Balance 1303.4 PT 15.3 SEC (12.0-15.0) H 09/08/17 15:45 INR 1.21 (0.83-1.16) H 09/08/17 15:45 - Time Spent With Patient Time Spent with Patient: greater than 35 minutes Time Spent with Patient: Greater than 35 minutes spent on this patients care, greater than 50% of time spent counseling, educating, and coordinating care regarding the above mentioned plan. ICD10 Worksheet Patient Problems: Problems Problem Status Onset GI bleed Acute
--- NOTE | 2017-09-09 14:58 | SOAPPROG ---
[facility] Progress Note Assessment/Plan: Assessment:Plan: 1) GI bleed - large bleed with HB down to 4!!, now up to > 7 with PRBC neg EGD, Colon, EGD with colon scope (enteroscopy) and angiogram. Had pos tagged RBC. Spoke to radiology both IR and nuc med, will get meckles scan today. I have Dr. Waite see pt as well 2) Anemia - acute blood loss, accepting PRBC now, keep HB > 8 for this active bleed I suspect a distal small bowel source such as a Meckles - his BUN is not elevated even with sig GI bleed, EGD and enteroscope was w/o any blood in upper small bowel. If scan negative, repeat tomorrow. If stops bleeding - small bowel capsule camera study I spoke with radiologists x2, hospitalists, music librarian and surgeon regarding this case 09/09/17 14:44 Subjective: cc- large occult GI bleed, post hemorrhagic anemia pt feeling ok, still passing blood, no sig abdo pain, no n/v spoke with father as well regarding plan Objective: Vital Signs Temp Pulse Resp BP Pulse Ox 36.3 C 84 14 130/55 H 100 09/09/17 14:00 09/09/17 14:00 09/09/17 14:00 09/09/17 14:00 09/09/17 14:00 Laboratory Results 09/09/17 12:25 09/09/17 06:20 09/08/17 09/09/17 09/10/17 05:59 05:59 05:59 Intake Total 2103.4 Output Total 800 Balance 1303.4 PT 15.3 SEC (12.0-15.0) H 09/08/17 15:45 INR 1.21 (0.83-1.16) H 09/08/17 15:45 A+Ox3 CTA S1S2, RRR +BS, soft NT Laboratory Tests 09/07/17 09/08/17 09/09/17 01:48 22:05 02:05 Hgb 6.1 L 4.8 L* Hct 17.8 L* 14.1 L* BUN 15 Creatinine 0.9 09/09/17 09/09/17 09/09/17 06:20 06:20 12:25 Hgb 4.7 L* 7.8 L Hct 14.1 L* 22.0 L D BUN 5 L Creatinine 0.8 ICD10 Worksheet Patient Problems: Problems Problem Status Onset GI bleed Acute
--- NOTE | 2017-09-09 19:28 | GCON ---
[f rep st] CONSULTATION DATE OF CONSULTATION: 09/09/2017 CHIEF COMPLAINT: Hematochezia. HISTORY OF PRESENT ILLNESS: This is an otherwise very healthy 22-year-old male , who presented to the Emergency Department in the early hours of the . At that point in time, the patient complained of passing bright red blood per rectum, and stated that he had 6 bowel movements prior to his presentation. Since that time, the patient has been admitted to the medical service, and has had an extensive workup looking for the source of bleeding, including both upper and lower endoscopies. Upper endoscopy was negative for blood in the stomach and proximal through 3rd portion of the duodenum. The lower endoscopy showed blood throughout the colon and into the distal ilium. Nuclear scan showed possible bleeding at the junction of the 3rd portion of the duodenum. In addition, the patient has also been to the angiography suite where provoke studies were unable to find the source of bleeding. Since that time, the patient has been in the Intensive Care Unit. He initially refused blood products, and his hemoglobin drifted down to a kit of 4.7, after which he finally agreed to blood transfusion. He has since received 3 units of packed cells. His hemoglobin has risen to 7.8. Prior to seeing the patient, he had 2 bloody bowel movements, which were described as dark over the last 2 hours. He has never had any hematemesis, and other than some cramping when he passes the blood, he really has no abdominal pain. He denies having fevers or chills, and has never had any issues like this in the past. PAST MEDICAL HISTORY: Hemorrhoids. PAST SURGICAL HISTORY: None. SOCIAL HISTORY: Denies illicit drug use. Does smoke tobacco rarely. Drinks alcohol rarely. FAMILY HISTORY: Noncontributory. REVIEW OF SYSTEMS: A full 10-point review was performed, and unless explicitly stated above is otherwise negative. PHYSICAL EXAMINATION: VITAL SIGNS: Temperature 36.3, blood pressure 132/52, heart rate 76, and he is 99% on room air. CONSTITUTIONAL: He is alert, oriented, in no apparent distress. He appears comfortable. EYES: His pupils are equal, round, and reactive to light and accommodation. He has anicteric sclerae with normal extraocular movements. EARS, NOSE, MOUTH AND THROAT: He has dry mucous membranes. His hearing is normal. His ears appear normal, and he has no oral mucosal ulcers. CARDIOVASCULAR: He has a regular rate and rhythm without any murmurs. RESPIRATORY: He has no respiratory distress. No rales or rhonchi. He is otherwise clear to auscultation. GI: He has normoactive bowel sounds. ABDOMEN: Soft, nondistended, nontender without rebound tenderness or guarding. SKIN: Warm. Normal color. No rashes. No abrasions. No fluctuance or induration. MUSCULOSKELETAL: He has full muscle strength. No muscle tenderness and normal joint range of motion. NEUROLOGIC: He is alert and oriented x3. His cranial nerves 2-12 are intact. He has no weakness. No numbness. No asterixis. PSYCH: He is interacting appropriately. He is not anxious. He is not encephalopathic. He has a normal thought process. LYMPH/HEME/IMMUNOLOGIC: He has no cervical groin or supraclavicular lymphadenopathy. LABS: Last H and H from 12:25 today shows a hemoglobin of 7.8 and hematocrit of 22. Coags from yesterday were normal with an INR of 1.2. Chemistry from this morning is really unremarkable. IMAGING: Upper and lower endoscopies, which were reviewed. In addition to a tagged red cell scan, and a visceral angiography. The images which were personally reviewed by me, and show really no source of bleeding at this point in time. ASSESSMENT AND PLAN: A 22-year-old male with aggressive GI bleed. I have reviewed all of his imaging, as well as discussed the case with the wireless sales associate , the hospitalist, and the on-call guard manager. At this point in time, we really do not have a great idea as to where this bleed is coming from. Although, the tagged cell scan did show that it was likely the 3rd or 4th portion of the duodenal, and the lack of any blood within the stomach and proximal duodenum makes this less likely. The sensitivity and specificity of a tagged cell scan is poor. I do feel more than likely that this is coming from small bowel, likely distal, given the fact that blood was found throughout the colon and into the terminal ilium. However, this really leaves a lot of uncharted territory and discerning where exactly this is coming from. The patient finally elected to have a transfusion, which I think is helpful, as he responded appropriately after 3 units of packed cells. He will be undergoing a Meckel scan, which will be helpful if it is positive, as if we can determine the site of pathology an operation to remove that portion of bowel would be beneficial. However, a blind enterotomy and/or enterectomy approach I think would be fairly unfruitful, and likely cause more damage than good. However, if the patient continues to bleed and we do not have a source, operative exploration to look for any external pathology may be useful. I had a long discussion with the patient and his father describing my findings and concerns. We will continue to follow and await the results of the Meckel scan and proceed accordingly. Case was discussed again with Zana Conn and Vida. We will plan to follow and help as needed. /[id number]/MODL MTDD
[2017-09-09] MEDS ORDERED: IOPAMIDOL (ISOVUE 370) 100 ML BTL IV ONE (19:58)
--- NOTE | 2017-09-09 20:34 | GCON ---
[f rep st] CONSULTATION CRITICAL CARE CONSULTATION DATE OF CONSULTATION: 09/09/2017 REASON FOR CONSULTATION: GI bleed with acute blood loss anemia. HISTORY: The patient is a pleasant 22-year-old with no history of medical problems, no previous GI b leeding. He presented to the emergency department on the , 2 days ago, with bloody bowel movemen ts, frequent stooling, and abdominal cramping. There are no risk factors for this. He was on no reg ular medications, no aspirin, no anticoagulants. He has had a history in the past of some mild hemor rhoidal bleeding. Following admission he continued to bleed. Hematocrit was 37 on admission and bhupinder pped to 15 yesterday evening. He has received 3 units of packed red blood cells so far. 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 He has not been actively practicing this and subsequently agreed to blood transfusions. He has had a nuclear medicin e tagged red blood cell scan which showed bleeding in the upper central abdomen, perhaps the distal d uodenal. Endoscopy has not shown any bleeding source. He went to angiography with Interventional Ra diology and no bleeding site could be found. A Meckel's scan is being done today. He is continuing to bleed. He has been seen by Surgery as well as Gastroenterology and Radiology. PAST MEDICAL HISTORY: Unremarkable. DRUG ALLERGIES: None known. He is apparently allergic to tree nuts. SOCIAL HISTORY: The patient is single. He smoked some cigarettes in the past. Drinks alcohol occas ionally. 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 PHYSICAL EXAMINATION: GENERAL: Reveals a pleasant, pale-appearing gentleman lying comfortably in be d. VITAL SIGNS: Blood pressure is 135/55, heart rate 85 with sinus rhythm on the monitor. Respirat ory rate is 14. He is on room air. He is afebrile. HEENT/NECK: Unremarkable for lymphadenopathy o r thyromegaly. There is no jugular venous distention. CHEST: Clear bilaterally. HEART: Regular i n rate and rhythm without significant murmurs or gallops. ABDOMEN: Soft, nontender. Bowel sounds a re present. He has had ongoing bloody bowel movements. EXTREMITIES: Unremarkable for edema, cords, or tenderness. ASSESSMENT: Upper gastrointestinal bleed with marked acute blood-loss anemia. He has had 3 units of packed red blood cells. Currently has a hematocrit of 22, a hemoglobin of under 8. Two more units of packed red blood cells will be ordered and transfused. The Meckel scan has been ordered by Gastro enterology. Surgery has seen the patient and is aware of the findings so far. PLAN: The patient will be observed in the intensive care unit. Serial hematocrits will be followed, the next after his next 2 units of pack red blood cells. The result of his Meckel's scan will be aw aited. If positive, he will likely go to surgery. If negative and significant bleeding continues, jillian medellin return for repeat angiography would be of benefit. Further plans and recommendations will be made based on his progress over the next 12-24 hours. /[id number]/MODL
[2017-09-10] MEDS: PANTOPRAZOLE SODIUM 80 MG in NS 100 ML IV SCH ×2 (06:39→15:53)
[2017-09-10] MEDS: ACETAMINOPHEN 325 MG TAB PO PRN (08:54)
--- NOTE | 2017-09-10 09:13 | SOAPPROG ---
[facility] Progress Note Assessment/Plan: Assessment/Plan: 22yo M with occult GI Bleed - overnight, still had some bloody BMs but had no blood products and his Hb is stable this AM - Reviewed imaging again this AM and still have no clear source. - Will cont supportive care and transfuse as needed. Recheck Hb at noon. Given his stability overnight I do feel that his bleed is at least slowing. If continues to bleed would pursue IR imaging versus double balloon endoscopy at [facility]. there is still a role for diagnostic laparoscopy but I feel that chances of success are low given non-localization in all modalities. I am willing to explore if still bleeding and no source identified and discussed with the parents and patient today. 09/10/17 09:10 Subjective: still passing blood. Denies orthostatic symptoms Objective: Vital Signs Temp Pulse Resp BP Pulse Ox 37.0 C 93 16 119/53 L 99 09/10/17 08:00 09/10/17 08:00 09/10/17 08:00 09/10/17 08:00 09/10/17 08:00 Laboratory Results 09/10/17 05:50 09/10/17 05:50 09/09/17 09/10/17 09/11/17 05:59 05:59 05:59 Intake Total 2103.4 5159.1 Output Total 800 Balance 1303.4 5159.1 PT 15.3 SEC (12.0-15.0) H 09/08/17 15:45 INR 1.21 (0.83-1.16) H 09/08/17 15:45 ICD10 Worksheet Patient Problems: Problems Problem Status Onset GI bleed Acute
[2017-09-10] MEDS: NS 1,000 ML IV SCH (09:38)
--- NOTE | 2017-09-10 12:40 | SOAPPROG ---
[facility] Progress Note Assessment/Plan: Assessment:Plan: 1) GI bleed - large bleed with HB down to 4!!, now up to > 7 with PRBC neg EGD, Colon, EGD with colon scope (enteroscopy) and angiogram. Had pos tagged RBC. Spoke to radiology both IR and nuc med, will get meckles scan today. I have Dr. Waite see pt as well 2) Anemia - acute blood loss, accepting PRBC now, keep HB > 8 for this active bleed I suspect a distal small bowel source such as a Meckles - his BUN is not elevated even with sig GI bleed, EGD and enteroscope was w/o any blood in upper small bowel. If scan negative, repeat tomorrow. If stops bleeding - small bowel capsule camera study I spoke with radiologists x2, hospitalists, ell tutor and surgeon regarding this case 09/09/17 14:44 09/10/17 12:35 as above, pt with continued hematochezia, stable VS, HB did go up with PRBC but recent is lower. 1) GI bleed - suspect distal SB lesion - neg colon, EGD, enteroscopy = upper with colon scope, angiogram, Meckel scan and CT angiogram. he did have a positive tagged RBC scan. If next H/H down more will ask IR to consider repeat angiogram. If that is negative, then I think he will need a double balloon enteroscopy. If he slows or stops bleeding then capsule study in am. I have called [facility] and am awaiting a call back from the attending 2) anemia - acute blood loss, check repeat Hb at 3pm discussed with surgeon, ell tutor, radiologist and waiting call back from GI attending at [facility] - Subjective: cc- GI bleed, acute blood loss anemia pt feeling OK, frustrated as are his parents had detailed discussion about issues, next studies, overall plan father asked I speak to his friend a radiologist in [place] - he will call my service and page me Objective: Vital Signs Temp Pulse Resp BP Pulse Ox 36.8 C 81 19 123/45 H 100 09/10/17 12:00 09/10/17 12:00 09/10/17 12:00 09/10/17 12:00 09/10/17 12:00 Laboratory Results 09/10/17 11:55 09/10/17 05:50 09/09/17 09/10/17 09/11/17 05:59 05:59 05:59 Intake Total 2103.4 5159.1 Output Total 800 Balance 1303.4 5159.1 PT 15.3 SEC (12.0-15.0) H 09/08/17 15:45 INR 1.21 (0.83-1.16) H 09/08/17 15:45 A+Ox3 CTA S1S2, RRR +BS, soft, nt no hsm Laboratory Tests 09/09/17 09/09/17 09/10/17 12:25 21:20 00:00 Hgb 7.8 L 7.9 L 8.7 L Hct 22.0 L D 21.9 L 23.6 L 09/10/17 05:50 Hgb 8.3 L Hct 23.3 L ICD10 Worksheet Patient Problems: Problems Problem Status Onset GI bleed Acute
--- NOTE | 2017-09-10 12:40 | SOAPPROG ---
[facility] Progress Note Assessment/Plan: Assessment:Plan: 1) GI bleed - large bleed with HB down to 4!!, now up to > 7 with PRBC neg EGD, Colon, EGD with colon scope (enteroscopy) and angiogram. Had pos tagged RBC. Spoke to radiology both IR and nuc med, will get meckles scan today. I have Dr. Waite see pt as well 2) Anemia - acute blood loss, accepting PRBC now, keep HB > 8 for this active bleed I suspect a distal small bowel source such as a Meckles - his BUN is not elevated even with sig GI bleed, EGD and enteroscope was w/o any blood in upper small bowel. If scan negative, repeat tomorrow. If stops bleeding - small bowel capsule camera study I spoke with radiologists x2, hospitalists, transfusion aide and surgeon regarding this case 09/09/17 14:44 09/10/17 12:35 as above, pt with continued hematochezia, stable VS, HB did go up with PRBC but recent is lower. 1) GI bleed - suspect distal SB lesion - neg colon, EGD, enteroscopy = upper with colon scope, angiogram, Meckel scan and CT angiogram. he did have a positive tagged RBC scan. If next H/H down more will ask IR to consider repeat angiogram. If that is negative, then I think he will need a double balloon enteroscopy. If he slows or stops bleeding then capsule study in am. I have called [facility] and am awaiting a call back from the attending 2) anemia - acute blood loss, check repeat Hb at 3pm discussed with surgeon, transfusion aide, radiologist and waiting call back from GI attending at [facility] - Subjective: cc- GI bleed, acute blood loss anemia pt feeling OK, frustrated as are his parents had detailed discussion about issues, next studies, overall plan father asked I speak to his friend a radiologist in [place] - he will call my service and page me Objective: Vital Signs Temp Pulse Resp BP Pulse Ox 36.8 C 81 19 123/45 H 100 09/10/17 12:00 09/10/17 12:00 09/10/17 12:00 09/10/17 12:00 09/10/17 12:00 Laboratory Results 09/10/17 11:55 09/10/17 05:50 09/09/17 09/10/17 09/11/17 05:59 05:59 05:59 Intake Total 2103.4 5159.1 Output Total 800 Balance 1303.4 5159.1 PT 15.3 SEC (12.0-15.0) H 09/08/17 15:45 INR 1.21 (0.83-1.16) H 09/08/17 15:45 A+Ox3 CTA S1S2, RRR +BS, soft, nt no hsm Laboratory Tests 09/09/17 09/09/17 09/10/17 12:25 21:20 00:00 Hgb 7.8 L 7.9 L 8.7 L Hct 22.0 L D 21.9 L 23.6 L 09/10/17 05:50 Hgb 8.3 L Hct 23.3 L ICD10 Worksheet Patient Problems: Problems Problem Status Onset GI bleed Acute
--- NOTE | 2017-09-10 12:40 | SOAPPROG ---
[facility] Progress Note Assessment/Plan: Assessment:Plan: 1) GI bleed - large bleed with HB down to 4!!, now up to > 7 with PRBC neg EGD, Colon, EGD with colon scope (enteroscopy) and angiogram. Had pos tagged RBC. Spoke to radiology both IR and nuc med, will get meckles scan today. I have Dr. Waite see pt as well 2) Anemia - acute blood loss, accepting PRBC now, keep HB > 8 for this active bleed I suspect a distal small bowel source such as a Meckles - his BUN is not elevated even with sig GI bleed, EGD and enteroscope was w/o any blood in upper small bowel. If scan negative, repeat tomorrow. If stops bleeding - small bowel capsule camera study I spoke with radiologists x2, hospitalists, supervisor dog license officer and surgeon regarding this case 09/09/17 14:44 09/10/17 12:35 as above, pt with continued hematochezia, stable VS, HB did go up with PRBC but recent is lower. 1) GI bleed - suspect distal SB lesion - neg colon, EGD, enteroscopy = upper with colon scope, angiogram, Meckel scan and CT angiogram. he did have a positive tagged RBC scan. If next H/H down more will ask IR to consider repeat angiogram. If that is negative, then I think he will need a double balloon enteroscopy. If he slows or stops bleeding then capsule study in am. I have called [facility] and am awaiting a call back from the attending 2) anemia - acute blood loss, check repeat Hb at 3pm discussed with surgeon, supervisor dog license officer, radiologist and waiting call back from GI attending at [facility] - Subjective: cc- GI bleed, acute blood loss anemia pt feeling OK, frustrated as are his parents had detailed discussion about issues, next studies, overall plan father asked I speak to his friend a radiologist in [place] - he will call my service and page me Objective: Vital Signs Temp Pulse Resp BP Pulse Ox 36.8 C 81 19 123/45 H 100 09/10/17 12:00 09/10/17 12:00 09/10/17 12:00 09/10/17 12:00 09/10/17 12:00 Laboratory Results 09/10/17 11:55 09/10/17 05:50 09/09/17 09/10/17 09/11/17 05:59 05:59 05:59 Intake Total 2103.4 5159.1 Output Total 800 Balance 1303.4 5159.1 PT 15.3 SEC (12.0-15.0) H 09/08/17 15:45 INR 1.21 (0.83-1.16) H 09/08/17 15:45 A+Ox3 CTA S1S2, RRR +BS, soft, nt no hsm Laboratory Tests 09/09/17 09/09/17 09/10/17 12:25 21:20 00:00 Hgb 7.8 L 7.9 L 8.7 L Hct 22.0 L D 21.9 L 23.6 L 09/10/17 05:50 Hgb 8.3 L Hct 23.3 L ICD10 Worksheet Patient Problems: Problems Problem Status Onset GI bleed Acute
--- NOTE | 2017-09-10 15:47 | HOSPPROG ---
Hospitalist Progress Note Assessment/Plan: DIAGNOSES: -ACUTE GI BLEED UNKOWN LOCATION OR LESION, ongoing bleeding -ACUTE SEVERE BLOOD LOSS ANEMIA WITH HYPOTENSION, HIGH RISK OF COMPLICATION -s/p 5 units RBCs 09/09 I have reviewed in detail with Vida Cox, and Teena He continues to pass bright red blood, and though hemodynamically stable he has dropped Hg by 1.4 in past 24 hrs. We will attempt angio again today. If anything seen to embolize that may finish the problem. If not, we would consider moving him to [facility] if they have available a double baloon endo procedure. If he suddenly becomes more unstable here we can always go to OR but would reserve that if at all possible. PLANS: -continue careful monitoring of hemodynamics, blood counts -repeat attempt at angio -further transfusions may be indicated -Dr Dickinson prepared to take pt to OR if instability occurs SUBJECTIVE: headahce reasolved no angina, sob, nausea, abd pain, fever OBJECTIVE: vitals: this am became hypotensive syst 80s, now better after transfusion of 3 units RBCs card monitor: NSR exam: (this is after 3 units RBCs given this am) alert oriented mildly anxious skin warm dry good cap refill resps easy lungs clear heart regular abd soft nondistended nontender no edema no brusing Objective: Vital Signs Temp Pulse Resp BP Pulse Ox 36.8 C 77 16 120/49 L 100 09/10/17 12:00 09/10/17 15:00 09/10/17 15:00 09/10/17 15:00 09/10/17 15:00 Laboratory Results 09/10/17 15:07 09/10/17 05:50 09/09/17 09/10/17 09/11/17 06:59 06:59 06:59 Intake Total 2103.4 5159.1 Output Total 800 Balance 1303.4 5159.1 PT 15.3 SEC (12.0-15.0) H 09/08/17 15:45 INR 1.21 (0.83-1.16) H 09/08/17 15:45 ICD10 Worksheet Patient Problems: Problems Problem Status Onset GI bleed Acute
[2017-09-10] MEDS ORDERED: DEXMEDETOMIDINE HCL 400 MCG in NS 100 ML IV SCH (16:00)
--- NOTE | 2017-09-10 16:00 | PDINTPN ---
Microfilming Document Preparer Progress Note Assessment/Plan: Assessment: Acute GI bleed with acute blood loss anemia. Coming from small bowel. Exact location has not yet been established despite multiple investigations. Still bleeding. Status post 5 units yesterday, 2 more units just ordered this afternoon with continued bleeding and decreased hematocrit now to 20, hemoglobin to 7. To go back to IR for angiography. If negative capsule endoscopy is being considered for tomorrow, either here or at [facility]. Being followed by GI/Dr. Mcpherson and surgery. Plan: 2 units of PRBCs to be ordered now. Back to IR today for repeat angiography. Will request a PICC line at that time as venous access is limited. Precedex can be given if needed for procedural sedation. Continue to follow H&H closely. Subjective: Doing okay, no longer dizzy when he stands up. Still having bright red blood per rectum. Objective: Vital Signs Temp Pulse Resp BP Pulse Ox 36.8 C 77 16 120/49 L 100 09/10/17 12:00 09/10/17 15:00 09/10/17 15:00 09/10/17 15:00 09/10/17 15:00 Laboratory Results 09/10/17 15:07 09/10/17 05:50 09/09/17 09/10/17 09/11/17 05:59 05:59 05:59 Intake Total 2103.4 5159.1 Output Total 800 Balance 1303.4 5159.1 PT 15.3 SEC (12.0-15.0) H 09/08/17 15:45 INR 1.21 (0.83-1.16) H 09/08/17 15:45 Physical Exam - Physical Exam General Appearance: alert, no apparent distress EENT: PERRL/EOMI, pale conjunctiva (R), pale conjunctiva (L) Neck: normal inspection Respiratory: lungs clear, normal breath sounds Cardiac/Chest: regular rate, rhythm Abdomen: normal bowel sounds, non-tender, soft Skin: warm/dry, pallor Extremities: No pedal edema Neuro/Psych: no motor/sensory deficits, No cognition abnormalities ICD10 Worksheet Patient Problems: Problems Problem Status Onset GI bleed Acute
--- NOTE | 2017-09-10 16:02 | SOAPPROG ---
[facility] Progress Note Assessment/Plan: Assessment:Plan: 1) GI bleed - large bleed with HB down to 4!!, now up to > 7 with PRBC neg EGD, Colon, EGD with colon scope (enteroscopy) and angiogram. Had pos tagged RBC. Spoke to radiology both IR and nuc med, will get meckles scan today. I have Dr. Waite see pt as well 2) Anemia - acute blood loss, accepting PRBC now, keep HB > 8 for this active bleed I suspect a distal small bowel source such as a Meckles - his BUN is not elevated even with sig GI bleed, EGD and enteroscope was w/o any blood in upper small bowel. If scan negative, repeat tomorrow. If stops bleeding - small bowel capsule camera study I spoke with radiologists x2, hospitalists, pearl diver and surgeon regarding this case 09/09/17 14:44 09/10/17 12:35 as above, pt with continued hematochezia, stable VS, HB did go up with PRBC but recent is lower. 1) GI bleed - suspect distal SB lesion - neg colon, EGD, enteroscopy = upper with colon scope, angiogram, Meckel scan and CT angiogram. he did have a positive tagged RBC scan. If next H/H down more will ask IR to consider repeat angiogram. If that is negative, then I think he will need a double balloon enteroscopy. If he slows or stops bleeding then capsule study in am. I have called [facility] and am awaiting a call back from the attending 2) anemia - acute blood loss, check repeat Hb at 3pm discussed with surgeon, pearl diver, radiologist and waiting call back from GI attending at [facility] - 09/10/17 15:40 spoke to [facility] GI attending drywall application supervisor who agrees with the plan. Since hb dropped again with continued hematochezia and stable BP and HR, I have asked IR to reassess for possible repeat mesenteric angiogram. If angiogram is successful with stopping the bleed, we will follow him here and consider capsule endoscopy to further delineate the etiology of the gi bleed. If the angiogram is negative, then the next step is capsule endoscopy to help determining etiology, location and direct the next step in treatment. The capsule could be performed here or at [facility]. They wont have availability until tomorrow, nor will we. If the capsule studies documents a Meckel's diverticulum , then we proceed with surgical resection. IF the capsule only shows approx location of bleeding (ie distal small bowel), it will help direct a balloon enteroscopy. Given the logistics of the capsule study and likely need for balloon enteroscopy, which is not available here, we may initiate transfer to [facility] if the angiogram is negative. Despite the negative Meckel's scan , I still suspect a Meckel's diverticulum in a 22 year old male with painless LGI bleed with blood noted throughout colon and into distal sb with a positive tagged RBC scan c/w small bowel source. I have spoken to Dr. Chiu, who will be seeing pt shortly, and to Dr. Jenkins who will order more PRBC's. Objective: Vital Signs Temp Pulse Resp BP Pulse Ox 36.8 C 77 16 120/49 L 100 09/10/17 12:00 09/10/17 15:00 09/10/17 15:00 09/10/17 15:00 09/10/17 15:00 Laboratory Results 09/10/17 15:07 09/10/17 05:50 09/09/17 09/10/17 09/11/17 05:59 05:59 05:59 Intake Total 2103.4 5159.1 Output Total 800 Balance 1303.4 5159.1 PT 15.3 SEC (12.0-15.0) H 09/08/17 15:45 INR 1.21 (0.83-1.16) H 09/08/17 15:45 ICD10 Worksheet Patient Problems: Problems Problem Status Onset GI bleed Acute
--- NOTE | 2017-09-10 16:02 | SOAPPROG ---
[facility] Progress Note Assessment/Plan: Assessment:Plan: 1) GI bleed - large bleed with HB down to 4!!, now up to > 7 with PRBC neg EGD, Colon, EGD with colon scope (enteroscopy) and angiogram. Had pos tagged RBC. Spoke to radiology both IR and nuc med, will get meckles scan today. I have Dr. Waite see pt as well 2) Anemia - acute blood loss, accepting PRBC now, keep HB > 8 for this active bleed I suspect a distal small bowel source such as a Meckles - his BUN is not elevated even with sig GI bleed, EGD and enteroscope was w/o any blood in upper small bowel. If scan negative, repeat tomorrow. If stops bleeding - small bowel capsule camera study I spoke with radiologists x2, hospitalists, locker plant attendant and surgeon regarding this case 09/09/17 14:44 09/10/17 12:35 as above, pt with continued hematochezia, stable VS, HB did go up with PRBC but recent is lower. 1) GI bleed - suspect distal SB lesion - neg colon, EGD, enteroscopy = upper with colon scope, angiogram, Meckel scan and CT angiogram. he did have a positive tagged RBC scan. If next H/H down more will ask IR to consider repeat angiogram. If that is negative, then I think he will need a double balloon enteroscopy. If he slows or stops bleeding then capsule study in am. I have called [facility] and am awaiting a call back from the attending 2) anemia - acute blood loss, check repeat Hb at 3pm discussed with surgeon, locker plant attendant, radiologist and waiting call back from GI attending at [facility] - 09/10/17 15:40 spoke to [facility] GI attending automotive production worker who agrees with the plan. Since hb dropped again with continued hematochezia and stable BP and HR, I have asked IR to reassess for possible repeat mesenteric angiogram. If angiogram is successful with stopping the bleed, we will follow him here and consider capsule endoscopy to further delineate the etiology of the gi bleed. If the angiogram is negative, then the next step is capsule endoscopy to help determining etiology, location and direct the next step in treatment. The capsule could be performed here or at [facility]. They wont have availability until tomorrow, nor will we. If the capsule studies documents a Meckel's diverticulum , then we proceed with surgical resection. IF the capsule only shows approx location of bleeding (ie distal small bowel), it will help direct a balloon enteroscopy. Given the logistics of the capsule study and likely need for balloon enteroscopy, which is not available here, we may initiate transfer to [facility] if the angiogram is negative. Despite the negative Meckel's scan , I still suspect a Meckel's diverticulum in a 22 year old male with painless LGI bleed with blood noted throughout colon and into distal sb with a positive tagged RBC scan c/w small bowel source. I have spoken to Dr. Chiu, who will be seeing pt shortly, and to Dr. Jenkins who will order more PRBC's. Objective: Vital Signs Temp Pulse Resp BP Pulse Ox 36.8 C 77 16 120/49 L 100 09/10/17 12:00 09/10/17 15:00 09/10/17 15:00 09/10/17 15:00 09/10/17 15:00 Laboratory Results 09/10/17 15:07 09/10/17 05:50 09/09/17 09/10/17 09/11/17 05:59 05:59 05:59 Intake Total 2103.4 5159.1 Output Total 800 Balance 1303.4 5159.1 PT 15.3 SEC (12.0-15.0) H 09/08/17 15:45 INR 1.21 (0.83-1.16) H 09/08/17 15:45 ICD10 Worksheet Patient Problems: Problems Problem Status Onset GI bleed Acute
--- NOTE | 2017-09-10 16:02 | SOAPPROG ---
[facility] Progress Note Assessment/Plan: Assessment:Plan: 1) GI bleed - large bleed with HB down to 4!!, now up to > 7 with PRBC neg EGD, Colon, EGD with colon scope (enteroscopy) and angiogram. Had pos tagged RBC. Spoke to radiology both IR and nuc med, will get meckles scan today. I have Dr. Waite see pt as well 2) Anemia - acute blood loss, accepting PRBC now, keep HB > 8 for this active bleed I suspect a distal small bowel source such as a Meckles - his BUN is not elevated even with sig GI bleed, EGD and enteroscope was w/o any blood in upper small bowel. If scan negative, repeat tomorrow. If stops bleeding - small bowel capsule camera study I spoke with radiologists x2, hospitalists, strawhat sizer and surgeon regarding this case 09/09/17 14:44 09/10/17 12:35 as above, pt with continued hematochezia, stable VS, HB did go up with PRBC but recent is lower. 1) GI bleed - suspect distal SB lesion - neg colon, EGD, enteroscopy = upper with colon scope, angiogram, Meckel scan and CT angiogram. he did have a positive tagged RBC scan. If next H/H down more will ask IR to consider repeat angiogram. If that is negative, then I think he will need a double balloon enteroscopy. If he slows or stops bleeding then capsule study in am. I have called [facility] [place] [place] and am awaiting a call back from the attending 2) anemia - acute blood loss, check repeat Hb at 3pm discussed with surgeon, strawhat sizer, radiologist and waiting call back from GI attending at [facility] [place] [place] - 09/10/17 15:40 spoke to [facility] [place] [place] [facility] attending radio communications superintendent who agrees with the plan. Since hb dropped again with continued hematochezia and stable BP and HR, I have asked IR to reassess for possible repeat mesenteric angiogram. If angiogram is successful with stopping the bleed, we will follow him here and consider capsule endoscopy to further delineate the etiology of the gi bleed. If the angiogram is negative, then the next step is capsule endoscopy to help determining etiology, location and direct the next step in treatment. The capsule could be performed here or at [facility] [place] [place]. They wont have availability until tomorrow, nor will we. If the capsule studies documents a Meckel's diverticulum , then we proceed with surgical resection. IF the capsule only shows approx location of bleeding (ie distal small bowel), it will help direct a balloon enteroscopy. Given the logistics of the capsule study and likely need for balloon enteroscopy, which is not available here, we may initiate transfer to [facility] if the angiogram is negative. Despite the negative Meckel's scan , I still suspect a Meckel's diverticulum in a 22 year old male with painless LGI bleed with blood noted throughout colon and into distal sb with a positive tagged RBC scan c/w small bowel source. I have spoken to Dr. Chiu, who will be seeing pt shortly, and to Dr. Jenkins who will order more PRBC's. Objective: Vital Signs Temp Pulse Resp BP Pulse Ox 36.8 C 77 16 120/49 L 100 09/10/17 12:00 09/10/17 15:00 09/10/17 15:00 09/10/17 15:00 09/10/17 15:00 Laboratory Results 09/10/17 15:07 09/10/17 05:50 09/09/17 09/10/17 09/11/17 05:59 05:59 05:59 Intake Total 2103.4 5159.1 Output Total 800 Balance 1303.4 5159.1 PT 15.3 SEC (12.0-15.0) H 09/08/17 15:45 INR 1.21 (0.83-1.16) H 09/08/17 15:45 ICD10 Worksheet Patient Problems: Problems Problem Status Onset GI bleed Acute
[2017-09-10] MEDS ORDERED: ALTEPLASE 2 MG VIAL IVP PRN (16:05)
[2017-09-10] MEDS ORDERED: LIDOCAINE 2% 5 ML SDV IF ONE (16:15)
[2017-09-10] MEDS ORDERED: MIDAZOLAM 2 MG/2 ML VIAL ONE ×2 (16:58→19:32)
[2017-09-10] MEDS ORDERED: NALOXONE HCL 0.4 MG/ML INJ ONE (16:58)
[2017-09-10] MEDS ORDERED: fentaNYL 100 MCG/2 ML INJ ONE (16:58)
[2017-09-10] MEDS ORDERED: FLUMAZENIL 0.5 MG/5 ML MDV IVP ONE (16:58)
[2017-09-10] MEDS ORDERED: GLUCAGON,HUMAN RECOMBINANT 1 MG VIAL ONE (17:15)
[2017-09-10] MEDS ORDERED: HEPARIN 10,000 UNIT/10 ML MDV ONE (17:34)
[2017-09-10] MEDS ORDERED: BUPIVACAINE 0.25% 30 ML SDV ONE (18:28)
[2017-09-10] MEDS ORDERED: BUPIVACAINE 0.5% 30 ML SDV ONE (19:00)
--- NOTE | 2017-09-10 19:00 | POSTOPPROG ---
Post Op Note Date of Operation: 09/10/17 Surgeon: Ted Chiu Anesthesia: IV Sedation Pre-op Diagnosis: Gastrointestinal bleeding Post-op Diagnosis: Same Indication: Ongoing hemorrhage Procedure: SMA arteriography pre and post lytic provocation Findings: Bleeder found, distal ileal level. Inf/Abcess present in the surg proc area at time of surgery?: No EBL: Minimal Complications: 0 Drains: Other (Starclose for hemostasis @ right groin.)
[2017-09-10] MEDS ORDERED: ERTAPENEM 1 GM in NS 100 ML IV ONE (19:14)
--- NOTE | 2017-09-10 19:14 | PDHPUP ---
History & Physical Update H&P update statement: This history and physical update is based on an assessment of the patient which was completed after admission or registration (within 24 hours), but prior to the surgery/procedure. H&P update: H&P reviewed & patient examined, no change in patient's condition since H&P completed
--- NOTE | 2017-09-10 19:28 | PDANEPAE ---
ANE History of Present Illness laparoscopy,posible small bowel resection ANE Past Medical History - Cardiovascular History Hx Hypertension: No Hx Arrhythmias: No Hx Chest Pain: No Hx Coronary Artery / Peripheral Vascular Disease: No Hx CHF / Valvular Disease: No Hx Palpitations: No - Pulmonary History Hx COPD: No Hx Asthma/Reactive Airway Disease: No Hx Recent Upper Respiratory Infection: No Hx Oxygen in Use at Home: No Hx Sleep Apnea: No Sleep Apnea Screening Result - Last Documented: Negative - Endocrine History Hx Diabetes: No Hypothyroid: No Hyperthyroid: No Obesity: no - Renal History Hx Renal Disorders: No - Liver History Hx Hepatic Disorders: No - Neurological & Psychiatric Hx Hx Neurological and Psychiatric Disorders: No - Cancer History Hx Cancer: No - GI History GERD: no Hx Gastrointestinal Disorders: Yes Gastrointestinal History Comment: GI bleed - Chronic Pain History Chronic Pain: No ANE Review of Systems Review of Systems: - Exercise capacity METS (RN): 4 METS ANE Patient History - Allergies Allergies/Adverse Reactions: tree nut Allergy (Severe, Verified 09/07/17 01:36) Anaphylaxis NO BLOOD PRODUCTS Allergy (Uncoded 09/08/17 04:35) - Home Medications Home Medications: Carboxymethylcellulose 1% [Refresh Celluvisc (*)] 1 drop EACHEYE DAILY PRN 09/07 [Last Taken Unknown] EPINEPHrine [Epipen 0.3 MG] 0.3 mg IM ONCE PRN 09/07/17 [Last Taken Unknown] Ibuprofen [Motrin (*)] 200 mg PO DAILY PRN 09/07/17 [Last Taken Unknown] Multivitamins [Multivitamin (*)] 1 each PO DAILY 09/07/17 [Last Taken Unknown] diphenhydrAMINE [Benadryl 25 MG (*)] 25 mg PO DAILY PRN 09/07/17 [Last Taken Unknown] - NPO status NPO Since - Liquids (Date): 09/08/17 NPO Since - Liquids (Time): 05:50 NPO Since - Solids (Date): 09/06/17 NPO Since - Solids (Time): 12:00 - Smoking Hx Smoking Status: Former smoker Marijuana use: Yes - Alcohol Use Alcohol Use: Occasionally - Family Anes Hx Family Anes Hx: none ANE Labs/Vital Signs - Labs Result Diagrams: 09/10/17 15:07 09/10/17 05:50 - Vital Signs Blood Pressure: 121/44 Heart Rate: 81 Respiratory Rate: 12 O2 Sat (%): 99 Height: 182.88 cm Weight: 83.007 kg ANE Physical Exam - Airway Neck exam: FROM Mallampati Score: Class 1 Mouth exam: normal dental/mouth exam - Pulmonary Pulmonary: clear to auscultation - Cardiovascular Cardiovascular: regular rate and rhythym - ASA Status ASA Status: III ANE Anesthesia Plan Anesthesia Plan: general endotracheal anesthesia
[2017-09-10] MEDS ORDERED: PROPOFOL 200 MG/20 ML VIAL ONE (19:31)
[2017-09-10] MEDS ORDERED: DEXAMETHASONE 4 MG/ML VIAL ONE (19:31)
[2017-09-10] MEDS ORDERED: ROCURONIUM 50 MG/5 ML VIAL ONE ×2 (19:31→20:27)
[2017-09-10] MEDS ORDERED: fentaNYL 250 MCG/5 ML INJ ONE (19:31)
[2017-09-10] MEDS ORDERED: PHENYLEPHRINE HCL 100 MCG/ML SYR ONE (19:51)
[2017-09-10] MEDS ORDERED: PHENYLEPHRINE 10 MG/ML SDV ONE (20:16)
[2017-09-10] MEDS ORDERED: ONDANSETRON 4 MG/2 ML VIAL ONE (20:25)
[2017-09-10] MEDS ORDERED: NEOSTIGMINE METHYLSULFATE 3 MG/3 ML SYR ONE (20:38)
[2017-09-10] MEDS ORDERED: GLYCOPYRROLATE 0.2 MG/1 ML VIAL ONE (20:39)
[2017-09-10] MEDS ORDERED: NALOXONE HCL 0.4 MG/ML INJ IVP PRN ×2 (20:58→21:06)
--- NOTE | 2017-09-10 20:58 | POSTOPPROG ---
Post Op Note Date of Operation: 09/10/17 Surgeon: Ab Waite Tubing Mill Operator: Moe Anesthesiologist: Kailash Anesthesia: GET(General Endotracheal) Pre-op Diagnosis: Occult GI bleed Post-op Diagnosis: GI bleed 2/2 Meckels Procedure: laparoscopic assisted small bowel resection Findings: Meckels in distal ileum Inf/Abcess present in the surg proc area at time of surgery?: No EBL: Minimal Specimen(s): small bowel with adjacent meckels
[2017-09-10] MEDS ORDERED: fentaNYL 100 MCG/2 ML INJ IVP PRN (21:06)
--- NOTE | 2017-09-10 21:22 | POSTANESTH ---
Post Anesthetic Evaluation Cardiovascular Status: Similar to Pre-Op Cond Respiratory Status: Normal, Stable Level of Consciousness/Mental Status: Can Participate in Eval Pain Control: Adequate, Prn Tx Ordered Nausea/Vomiting Control: Adequate, Prn Tx Ordered Complications Possibly Related to Anesthesia: None Noted
[2017-09-10] MEDS: HYDROmorphONE/DILAUDID 6 MG/30 ML PCA IV PRN (22:11)
[2017-09-11] MEDS: PANTOPRAZOLE SODIUM 80 MG in NS 100 ML IV SCH (05:10)
--- NOTE | 2017-09-11 07:28 | GOP ---
[f rep st] OPERATIVE REPORT DATE OF OPERATION: 09/10/2017 SURGEON: Ab Waite MD ELECTRICIAN HELPER AUTOMOTIVE: Rufus Mcgarry MD, who was necessary for proper exposure and timely completion of this case. ANESTHESIA: General endotracheal. ANESTHESIOLOGIST: Kostas Linder MD. PREOPERATIVE DIAGNOSIS: Occult GI bleed. 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 PROCEDURE PERFORMED: Laparoscopic-assisted small bowel resection and Meckelectomy. FINDINGS: Meckel's diverticulum located in the distal ilium. Small-bowel resection containing that portion successfully removed. Primary [id number] functional end-to-end anastomosis performed. SPECIMENS: Small bowel with Meckel's. ESTIMATED BLOOD LOSS: 5 cc. DESCRIPTION OF PROCEDURE: The patient was greeted in the intensive care unit. Consent was signed. He was then brought back to the operative suite, placed on the OR table in supine position. After all anesthesia machines, including SCDs , were on and functioning, World Health Organization time-out was performed. After successful induction of general anesthesia, the patient's abdomen was prepped and draped in typical sterile fashion. Antibiotics were given on-call to the operating room. I entered the abdomen via an infraumbilical cutdown through which my Veress needle was passed and pneumoperitoneum to 15 mmHg CO2 was achieved and well tolerated by the patient. Through this, I inserted a 5 mm Visiport. Once successfully in the abdomen, I placed 2 additional 5 mm ports , 1 in the suprapubic and 1 in the left upper quadrant. Through this, I identified the cecum and terminal ilium. I then systematically ran the small bowel approximately 50 cm from the terminal ilium. I identified a blind-ending loop consistent with a Meckel diverticulum. The majority of the small bowel appeared to have blood within it. I then ran the proximal small bowel all the way up to the ligament of Treitz and identified no other significant pathology. In the same fashion, I interrogated the colon from the level of the cecum through the rectum and identified no significant external pathology. Given the fact that I had identified what appeared to be a Meckel's and no other significant pathology, I directed my attention towards this. I made a small vertical midline incision. I delivered the specimen through this. I then made defects in the mesentery on either side and removed an approximate 10 cm portion of bowel containing the Meckel diverticulum. Once it was removed, I took down the mesentery successfully with the Harmonic scalpel. Specimen was then passed off. I then focused on creating my anastomosis. Using a single fire of the COURTNEY 75 blue load, I created a common enterotomy. The common enterotomy was closed with an additional fire of the stapler. My mesenteric defect was closed, and my staple line oversewn with Lemberted Vicryl sutures. My anastomosis was widely patent and hemostatic. It was then returned to the abdominal cavity. After this was done, I did inspect the remainder of the abdominal cavity and found no other significant pathology. The decision was made then to close. The fascia was closed with #1 PDS in running fashion, noting excellent fascial reapproximation and the subcutaneous tissue was irrigated with warm normal saline and the skin was closed with alfred. Sterile dressings were placed. The patient was then extubated in the operative suite and taken to the PACU in satisfactory condition. DRAINS: None. COUNTS: All counts were reported as correct x2. /[id number]/MODL MTDD
--- NOTE | 2017-09-11 09:22 | SOAPPROG ---
[facility] Progress Note Assessment/Plan: Assessment/Plan: 22yo M with occult GI Bleed s/p lap assisted small bowel resection and Meckelectomy - Doing well, pain controlled - abdomen is soft, has some hypoactive bowel sounds - No BMs overnight, will start CLD today - OOBTC, ambulate 09/10/17 09:10 09/11/17 09:21 Subjective: Alert, pain controlled Objective: Vital Signs Temp Pulse Resp BP Pulse Ox 36.9 C 77 18 123/52 H 99 09/11/17 05:00 09/11/17 08:00 09/11/17 08:00 09/11/17 08:00 09/11/17 08:00 Laboratory Results 09/11/17 05:15 09/11/17 05:15 09/10/17 09/11/17 09/12/17 05:59 05:59 05:59 Intake Total 5159.1 1072 Output Total 2600 Balance 5159.1 -1528 PT 15.3 SEC (12.0-15.0) H 09/08/17 15:45 INR 1.21 (0.83-1.16) H 09/08/17 15:45 ICD10 Worksheet Patient Problems: Problems Problem Status Onset GI bleed Acute
[2017-09-11] MEDS ORDERED: IOPAMIDOL (ISOVUE-300) 100 ML BTL ONE (10:48)
[2017-09-11] MEDS ORDERED: IOPAMIDOL (ISOVUE-370) 150 ML BTL IV ONE (10:50)
--- NOTE | 2017-09-11 11:14 | SOAPPROG ---
[facility] Progress Note Assessment/Plan: Assessment:Plan: 1) GI bleed - large bleed with HB down to 4!!, now up to > 7 with PRBC neg EGD, Colon, EGD with colon scope (enteroscopy) and angiogram. Had pos tagged RBC. Spoke to radiology both IR and nuc med, will get meckles scan today. I have Dr. Waite see pt as well 2) Anemia - acute blood loss, accepting PRBC now, keep HB > 8 for this active bleed I suspect a distal small bowel source such as a Meckles - his BUN is not elevated even with sig GI bleed, EGD and enteroscope was w/o any blood in upper small bowel. If scan negative, repeat tomorrow. If stops bleeding - small bowel capsule camera study I spoke with radiologists x2, hospitalists, lumber piler and surgeon regarding this case 09/09/17 14:44 09/10/17 12:35 as above, pt with continued hematochezia, stable VS, HB did go up with PRBC but recent is lower. 1) GI bleed - suspect distal SB lesion - neg colon, EGD, enteroscopy = upper with colon scope, angiogram, Meckel scan and CT angiogram. he did have a positive tagged RBC scan. If next H/H down more will ask IR to consider repeat angiogram. If that is negative, then I think he will need a double balloon enteroscopy. If he slows or stops bleeding then capsule study in am. I have called [facility] and am awaiting a call back from the attending 2) anemia - acute blood loss, check repeat Hb at 3pm discussed with surgeon, lumber piler, radiologist and waiting call back from GI attending at [facility] - 09/10/17 15:[address] [facility] GI attending supervisor special education who agrees with the plan. Since hb dropped again with continued hematochezia and stable BP and HR, I have asked IR to reassess for possible repeat mesenteric angiogram. If angiogram is successful with stopping the bleed, we will follow him here and consider capsule endoscopy to further delineate the etiology of the gi bleed. If the angiogram is negative, then the next step is capsule endoscopy to help determining etiology, location and direct the next step in treatment. The capsule could be performed here or at [facility]. They wont have availability until tomorrow, nor will we. If the capsule studies documents a Meckel's diverticulum , then we proceed with surgical resection. IF the capsule only shows approx location of bleeding (ie distal small bowel), it will help direct a balloon enteroscopy. Given the logistics of the capsule study and likely need for balloon enteroscopy, which is not available here, we may initiate transfer to [facility] if the angiogram is negative. Despite the negative Meckel's scan , I still suspect a Meckel's diverticulum in a 22 year old male with painless LGI bleed with blood noted throughout colon and into distal sb with a positive tagged RBC scan c/w small bowel source. I have spoken to Dr. Chiu, who will be seeing pt shortly, and to Dr. Jenkins who will order more PRBC's. 09/11/17 11:11 as above he had positive angiogram last night and went to surgery and had his Meckel's diverticulum resected with visible vessel he should do very well. He is walking around the [place]os and did try some PO but felt it wasn't yet moving so held off for now I will sign off thank you Glenroy Mcpherson M.D. Subjective: CC - LGI bleed from Meckels now resected pt is feeling well today quite happy about results Objective: Vital Signs Temp Pulse Resp BP Pulse Ox 36.9 C 87 14 124/83 H 98 09/11/17 05:00 09/11/17 10:00 09/11/17 10:00 09/11/17 10:00 09/11/17 10:00 Laboratory Results 09/11/17 05:15 09/11/17 05:15 09/10/17 09/11/17 09/12/17 05:59 05:59 05:59 Intake Total 5159.1 1072 Output Total 2600 1300 Balance 5159.1 -1528 -1300 PT 15.3 SEC (12.0-15.0) H 09/08/17 15:45 INR 1.21 (0.83-1.16) H 09/08/17 15:45 A+Ox3 S1S2, RRR I don't appreciate any sig bowel sounds yet, soft ICD10 Worksheet Patient Problems: Problems Problem Status Onset GI bleed Acute
--- NOTE | 2017-09-11 11:14 | SOAPPROG ---
[facility] Progress Note Assessment/Plan: Assessment:Plan: 1) GI bleed - large bleed with HB down to 4!!, now up to > 7 with PRBC neg EGD, Colon, EGD with colon scope (enteroscopy) and angiogram. Had pos tagged RBC. Spoke to radiology both IR and nuc med, will get meckles scan today. I have Dr. Waite see pt as well 2) Anemia - acute blood loss, accepting PRBC now, keep HB > 8 for this active bleed I suspect a distal small bowel source such as a Meckles - his BUN is not elevated even with sig GI bleed, EGD and enteroscope was w/o any blood in upper small bowel. If scan negative, repeat tomorrow. If stops bleeding - small bowel capsule camera study I spoke with radiologists x2, hospitalists, help desk assistant and surgeon regarding this case 09/09/17 14:44 09/10/17 12:35 as above, pt with continued hematochezia, stable VS, HB did go up with PRBC but recent is lower. 1) GI bleed - suspect distal SB lesion - neg colon, EGD, enteroscopy = upper with colon scope, angiogram, Meckel scan and CT angiogram. he did have a positive tagged RBC scan. If next H/H down more will ask IR to consider repeat angiogram. If that is negative, then I think he will need a double balloon enteroscopy. If he slows or stops bleeding then capsule study in am. I have called [facility] and am awaiting a call back from the attending 2) anemia - acute blood loss, check repeat Hb at 3pm discussed with surgeon, help desk assistant, radiologist and waiting call back from GI attending at [facility] - 09/10/17 15:40 spoke to [facility] GI attending commission for the blind director who agrees with the plan. Since hb dropped again with continued hematochezia and stable BP and HR, I have asked IR to reassess for possible repeat mesenteric angiogram. If angiogram is successful with stopping the bleed, we will follow him here and consider capsule endoscopy to further delineate the etiology of the gi bleed. If the angiogram is negative, then the next step is capsule endoscopy to help determining etiology, location and direct the next step in treatment. The capsule could be performed here or at [facility]. They wont have availability until tomorrow, nor will we. If the capsule studies documents a Meckel's diverticulum , then we proceed with surgical resection. IF the capsule only shows approx location of bleeding (ie distal small bowel), it will help direct a balloon enteroscopy. Given the logistics of the capsule study and likely need for balloon enteroscopy, which is not available here, we may initiate transfer to [facility] if the angiogram is negative. Despite the negative Meckel's scan , I still suspect a Meckel's diverticulum in a 22 year old male with painless LGI bleed with blood noted throughout colon and into distal sb with a positive tagged RBC scan c/w small bowel source. I have spoken to Dr. Chiu, who will be seeing pt shortly, and to Dr. Jenkins who will order more PRBC's. 09/11/17 11:11 as above he had positive angiogram last night and went to surgery and had his Meckel's diverticulum resected with visible vessel he should do very well. He is walking around the amos and did try some PO but felt it wasn't yet moving so held off for now I will sign off thank you Glenroy Mcpherson M.D. Subjective: CC - LGI bleed from Meckels now resected pt is feeling well today quite happy about results Objective: Vital Signs Temp Pulse Resp BP Pulse Ox 36.9 C 87 14 124/83 H 98 09/11/17 05:00 09/11/17 10:00 09/11/17 10:00 09/11/17 10:00 09/11/17 10:00 Laboratory Results 09/11/17 05:15 09/11/17 05:15 09/10/17 09/11/17 09/12/17 05:59 05:59 05:59 Intake Total 5159.1 1072 Output Total 2600 1300 Balance 5159.1 -1528 -1300 PT 15.3 SEC (12.0-15.0) H 09/08/17 15:45 INR 1.21 (0.83-1.16) H 09/08/17 15:45 A+Ox3 S1S2, RRR I don't appreciate any sig bowel sounds yet, soft ICD10 Worksheet Patient Problems: Problems Problem Status Onset GI bleed Acute
--- NOTE | 2017-09-11 11:14 | SOAPPROG ---
[facility] Progress Note Assessment/Plan: Assessment:Plan: 1) GI bleed - large bleed with HB down to 4!!, now up to > 7 with PRBC neg EGD, Colon, EGD with colon scope (enteroscopy) and angiogram. Had pos tagged RBC. Spoke to radiology both IR and nuc med, will get meckles scan today. I have Dr. Waite see pt as well 2) Anemia - acute blood loss, accepting PRBC now, keep HB > 8 for this active bleed I suspect a distal small bowel source such as a Meckles - his BUN is not elevated even with sig GI bleed, EGD and enteroscope was w/o any blood in upper small bowel. If scan negative, repeat tomorrow. If stops bleeding - small bowel capsule camera study I spoke with radiologists x2, hospitalists, direct care worker and surgeon regarding this case 09/09/17 14:44 09/10/17 12:35 as above, pt with continued hematochezia, stable VS, HB did go up with PRBC but recent is lower. 1) GI bleed - suspect distal SB lesion - neg colon, EGD, enteroscopy = upper with colon scope, angiogram, Meckel scan and CT angiogram. he did have a positive tagged RBC scan. If next H/H down more will ask IR to consider repeat angiogram. If that is negative, then I think he will need a double balloon enteroscopy. If he slows or stops bleeding then capsule study in am. I have called [facility] and am awaiting a call back from the attending 2) anemia - acute blood loss, check repeat Hb at 3pm discussed with surgeon, direct care worker, radiologist and waiting call back from GI attending at [facility] - 09/10/17 15:40 spoke to [facility] GI attending continuous dryout operator helper who agrees with the plan. Since hb dropped again with continued hematochezia and stable BP and HR, I have asked IR to reassess for possible repeat mesenteric angiogram. If angiogram is successful with stopping the bleed, we will follow him here and consider capsule endoscopy to further delineate the etiology of the gi bleed. If the angiogram is negative, then the next step is capsule endoscopy to help determining etiology, location and direct the next step in treatment. The capsule could be performed here or at [facility]. They wont have availability until tomorrow, nor will we. If the capsule studies documents a Meckel's diverticulum , then we proceed with surgical resection. IF the capsule only shows approx location of bleeding (ie distal small bowel), it will help direct a balloon enteroscopy. Given the logistics of the capsule study and likely need for balloon enteroscopy, which is not available here, we may initiate transfer to [facility] if the angiogram is negative. Despite the negative Meckel's scan , I still suspect a Meckel's diverticulum in a 22 year old male with painless LGI bleed with blood noted throughout colon and into distal sb with a positive tagged RBC scan c/w small bowel source. I have spoken to Dr. Chiu, who will be seeing pt shortly, and to Dr. Jenkins who will order more PRBC's. 09/11/17 11:11 as above he had positive angiogram last night and went to surgery and had his Meckel's diverticulum resected with visible vessel he should do very well. He is walking around the amos and did try some PO but felt it wasn't yet moving so held off for now I will sign off thank you Glenroy Mcpherson M.D. Subjective: CC - LGI bleed from Meckels now resected pt is feeling well today quite happy about results Objective: Vital Signs Temp Pulse Resp BP Pulse Ox 36.9 C 87 14 124/83 H 98 09/11/17 05:00 09/11/17 10:00 09/11/17 10:00 09/11/17 10:00 09/11/17 10:00 Laboratory Results 09/11/17 05:15 09/11/17 05:15 09/10/17 09/11/17 09/12/17 05:59 05:59 05:59 Intake Total 5159.1 1072 Output Total 2600 1300 Balance 5159.1 -1528 -1300 PT 15.3 SEC (12.0-15.0) H 09/08/17 15:45 INR 1.21 (0.83-1.16) H 09/08/17 15:45 A+Ox3 S1S2, RRR I don't appreciate any sig bowel sounds yet, soft ICD10 Worksheet Patient Problems: Problems Problem Status Onset GI bleed Acute
[2017-09-11] MEDS: NS 1,000 ML IV SCH (11:27)
--- NOTE | 2017-09-11 12:56 | HOSPPROG ---
Hospitalist Progress Note Assessment/Plan: DIAGNOSES: -ACUTE GI BLEED UNKOWN LOCATION OR LESION, ongoing bleeding -ACUTE SEVERE BLOOD LOSS ANEMIA WITH HYPOTENSION, HIGH RISK OF COMPLICATION -s/p 5 units RBCs 09/09 I have reviewed with Dr Dickinson and Dr Mcpherson The patient appears now stable, and other than minimal risk of anastamotic problems, he should be cured of his bleeding with minimal risk of other issues. PLANS: -start clear liquids -reviewed lifting restrictions -increase ambulation -recheck Hg -may move out of ICU if stable SUBJECTIVE: the patient continue to have ongoing bleeding yest evening. angiogram showed a small loop of bowel with hemorrhage c/w either meckels or appendix. The patient went to surgery where a meckels diverticulum was found and removed with short section of bowel. This was the sight of his bleeding. There are no complications. The patient has now some incisional pain but no other symptoms. OBJECTIVE: vitals: BPs are stable today, with normal pulse card monitor: NSR exam: alert oriented more relaxed skin warm dry good color good cap refill resps easy lungs clear heart regular abd soft nondistended nontender Hg stable at 8.6 Objective: Vital Signs Temp Pulse Resp BP Pulse Ox 36.9 C 81 12 123/59 H 97 09/11/17 05:00 09/11/17 12:00 09/11/17 12:00 09/11/17 12:00 09/11/17 12:00 Laboratory Results 09/11/17 05:15 09/11/17 05:15 09/10/17 09/11/17 09/12/17 06:59 06:59 06:59 Intake Total 5159.1 1072 Output Total 2600 1300 Balance 5159.1 -1528 -1300 PT 15.3 SEC (12.0-15.0) H 09/08/17 15:45 INR 1.21 (0.83-1.16) H 09/08/17 15:45 ICD10 Worksheet Patient Problems: Problems Problem Status Onset GI bleed Acute
--- NOTE | 2017-09-11 16:38 | ASMTCMCOM ---
CM Note CM Note Notes: CM Note 09/10/17 12:39 Patient had bleeding the night of 09/09, no bleeding morning 09/10, no clear source of bleed. Patient may need to be transferred to [facility] for more intensive testing, stable now. Spoke to patient's mother who has been very concerned and thankful for medical staff's care. [place] to evaluate for Medicaid eligibility on Monday. CM to follow. 09/11/17 Patient elected to have surgery at [facility]. Doinf very well. Father and patient have met with Kenyatta. Patient's mother to stay with him at home after discharge and when better will fly him back to her home in [place]. No other needs at this time. Date Signed: 09/11/2017 04:38 PM Electronically Signed By:Anisa Osman LCSW
--- NOTE | 2017-09-11 16:38 | ASMTCMCOM ---
CM Note CM Note Notes: CM Note 09/10/17 12:39 Patient had bleeding the night of 09/09, no bleeding morning 09/10, no clear source of bleed. Patient may need to be transferred to [facility] for more intensive testing, stable now. Spoke to patient's mother who has been very concerned and thankful for medical staff's care. Kenyatta to evaluate for Medicaid eligibility on Monday. CM to follow. 09/11/17 Patient elected to have surgery at [facility]. Doinf very well. Father and patient have met with Kenyatta. Patient's mother to stay with him at home after discharge and when better will fly him back to her home in [place]. No other needs at this time. Date Signed: 09/11/2017 04:38 PM Electronically Signed By:Anisa Osman LCSW
--- NOTE | 2017-09-11 16:38 | ASMTCMCOM ---
CM Note CM Note Notes: CM Note 09/10/17 12:39 Patient had bleeding the night of 09/09, no bleeding morning 09/10, no clear source of bleed. Patient may need to be transferred to [facility] for more intensive testing, stable now. Spoke to patient's mother who has been very concerned and thankful for medical staff's care. Kenyatta to evaluate for Medicaid eligibility on Monday. CM to follow. 09/11/17 Patient elected to have surgery at [facility]. Doinf very well. Father and patient have met with Kenyatta. Patient's mother to stay with him at home after discharge and when better will fly him back to her home in [place]. No other needs at this time. Date Signed: 09/11/2017 04:38 PM Electronically Signed By:Anisa Osman LCSW
[2017-09-11] MEDS: HYDROmorphONE/DILAUDID 6 MG/30 ML PCA IV PRN (18:31)
[2017-09-12 03:20] LABS: PLATELET COUNT 228 10^3/uL (150-400)
[2017-09-12] MEDS ORDERED: NITROGLYCERIN/D5W 50 MG/250 ML BOTTLE IV ONE (10:53)
--- NOTE | 2017-09-12 12:47 | SOAPPROG ---
[facility] Progress Note Assessment/Plan: Assessment/Plan: 22yo M with occult GI Bleed s/p lap assisted small bowel resection and Meckelectomy - Hb stable, no bowel fxn - abd soft, will see how he does with reg, go slow - likely home in day or so, would like to see him tolerate diet before fleeing 09/10/17 09:10 09/11/17 09:21 09/12/17 12:47 Subjective: not much bowel function Objective: Vital Signs Temp Pulse Resp BP Pulse Ox 37 C 87 16 113/71 100 09/11/17 20:00 09/12/17 05:59 09/12/17 05:59 09/12/17 10:24 09/12/17 10:24 Laboratory Results 09/12/17 03:00 09/12/17 03:00 09/11/17 09/12/17 09/13/17 05:59 05:59 05:59 Intake Total 1072 1271 Output Total 2600 1800 Balance -1528 -529 PT 15.3 SEC (12.0-15.0) H 09/08/17 15:45 INR 1.21 (0.83-1.16) H 09/08/17 15:45 ICD10 Worksheet Patient Problems: Problems Problem Status Onset GI bleed Acute
[2017-09-12] MEDS ORDERED: traMADol 50 MG TAB PO PRN (13:43)
[2017-09-12] MEDS: HYDROCODONE/APAP 5/325 TAB PO PRN (13:53)
[2017-09-12] MEDS ORDERED: methylPREDNISolone SOD SUCC 125 MG/2 ML VIAL IVP ONE (15:06)
--- NOTE | 2017-09-12 15:57 | HOSPPROG ---
Hospitalist Progress Note Assessment/Plan: ADDENDUM TO BELOW: While I was in room visiting patient a little before 15:30 the patient accidentally ingested a small amount of peanut butter that was on a spoon his mom had used, very quickly began to feel throat swelling and light headedness. He has a hx of nut anaphylaxis and used epipens. He did not have dyspnea or chest pain, or hives. On immediate exam he had some uvular swelling, some pharyngeal swelling, no hoarseness, no wheezing resps not labored and no wheeze. Blood pressure and pulse remained stable. With history of anaphylaxis in the past elected to give him epinephrine 1 mg, Benadryl and Solu-Medrol as well. This resulted in fairly prompt resolution of his pharyngeal symptoms. I have re-examined him 3 times over the following 3 hours and he has remained in stable condition from this allergic reaction without any recurrence of symptoms. May need further treatment as the evening goes on. Also the CT set passage of some melanic stool and a little bit of clicking in his abdomen. His vitals remained stable on my last examination this evening. I reviewed believe he is not having significant new bleeding but probably passing some old blood. This however will be watched very closely this evening. DIAGNOSES: -ACUTE GI BLEED UNKOWN LOCATION OR LESION, ongoing bleeding -ACUTE SEVERE BLOOD LOSS ANEMIA WITH HYPOTENSION, HIGH RISK OF COMPLICATION -s/p 5 units RBCs 09/09 -ACUTE ALLERGIC REACTION TO NUTS WITH HISTORY OF ANAPHYLAXIS TO NOT EXPOSURE I have reviewed with Dr Dickinson and Dr. Hernandez PLANS: -treatment for allergic reaction as detailed above -start regular diet -reviewed lifting restrictions -increase ambulation -recheck Hg SUBJECTIVE: today he had a very good morning and afternoon, eating well ambulating well with minimal discomfort and no significant signs of bleeding This afternoon he had a the new issues as detailed above in the addendum to this note OBJECTIVE: vitals: BPs are stable today, with normal pulse card monitor: NSR exam: (my initial exam from this morning) alert oriented more relaxed skin warm dry good color good cap refill resps easy lungs clear heart regular abd soft nondistended nontender Hg stable today Objective: Vital Signs Temp Pulse Resp BP Pulse Ox 37 C 87 16 113/71 100 09/11/17 20:00 09/12/17 05:59 09/12/17 05:59 09/12/17 10:24 09/12/17 10:24 Laboratory Results 09/12/17 03:00 09/12/17 03:00 09/11/17 09/12/17 09/13/17 06:59 06:59 06:59 Intake Total 1072 1271 Output Total 2600 1800 Balance -1528 -529 PT 15.3 SEC (12.0-15.0) H 09/08/17 15:45 INR 1.21 (0.83-1.16) H 09/08/17 15:45 - Time Spent With Patient Time Spent with Patient: greater than 35 minutes Time Spent with Patient: Greater than 35 minutes spent on this patients care, greater than 50% of time spent counseling, educating, and coordinating care regarding the above mentioned plan. ICD10 Worksheet Patient Problems: Problems Problem Status Onset GI bleed Acute
[2017-09-12] MEDS ORDERED: EPINEPHrine 1 MG/10 ML SYR IVP ONE (16:45)
[2017-09-13] MEDS: HYDROCODONE/APAP 5/325 TAB PO PRN ×4 (03:23→23:06)
--- NOTE | 2017-09-13 09:52 | HOSPPROG ---
Hospitalist Progress Note Assessment/Plan: DIAGNOSES: -MECKEL'S DIVERTICULUM WITH ACUTE GI BLEED, STATUS POST RESECTION OF MECKEL'S WITH PRIMARY ANASTOMOSIS -ACUTE GI BLEED UNKOWN LOCATION OR LESION, ongoing bleeding -ACUTE SEVERE BLOOD LOSS ANEMIA WITH HYPOTENSION, HIGH RISK OF COMPLICATION -s/p 5 units RBCs 09/09 -ACUTE ALLERGIC REACTION TO NUTS WITH HISTORY OF ANAPHYLAXIS TO NOT EXPOSURE PLANS: -start regular diet PER DR. BUTT -reviewed lifting restrictions -increase ambulation -recheck Hg SUBJECTIVE: Had a good night overnight feels very well this morning OBJECTIVE: vitals: BPs are stable today, with normal pulse card monitor: NSR exam: alert oriented more relaxed skin warm dry good color good cap refill resps easy lungs clear heart regular abd soft nondistended nontender Objective: Vital Signs Temp Pulse Resp BP Pulse Ox 36.4 C 90 14 121/63 H 100 09/13/17 08:00 09/13/17 08:00 09/13/17 08:00 09/13/17 08:00 09/13/17 08:00 Laboratory Results 09/13/17 09:00 09/12/17 03:00 09/12/17 09/13/17 09/14/17 06:59 06:59 06:59 Intake Total 1271 Output Total 1800 Balance -529 PT 15.3 SEC (12.0-15.0) H 09/08/17 15:45 INR 1.21 (0.83-1.16) H 09/08/17 15:45 ICD10 Worksheet Patient Problems: Problems Problem Status Onset GI bleed Acute
--- NOTE | 2017-09-13 13:14 | SOAPPROG ---
[facility] Progress Note Assessment/Plan: Assessment/Plan: 22yo M with occult GI Bleed s/p lap assisted small bowel resection and Meckelectomy - VSS, HDS on floor - abdomen is soft, alfred are cdi - had a few bloody BMs yesterday which is expected, he isnt still bleeding and will likely need to pass more as his body clears the residual blood out - His Hb is stable - Tolerating reg diet - Weaning CERTIFIED NURSES' AIDE to PO - Home tomorrow 09/10/17 09:10 09/11/17 09:21 09/12/17 12:47 09/13/17 13:13 Subjective: Buying a futon on [employer], I offered suggestions Objective: Vital Signs Temp Pulse Resp BP Pulse Ox 36.8 C 83 14 122/65 H 99 09/13/17 12:00 09/13/17 12:00 09/13/17 12:00 09/13/17 12:00 09/13/17 12:00 Laboratory Results 09/13/17 09:00 09/12/17 03:00 09/12/17 09/13/17 09/14/17 05:59 05:59 05:59 Intake Total 1271 Output Total 1800 Balance -529 PT 15.3 SEC (12.0-15.0) H 09/08/17 15:45 INR 1.21 (0.83-1.16) H 09/08/17 15:45 ICD10 Worksheet Patient Problems: Problems Problem Status Onset GI bleed Acute
--- NOTE | 2017-09-13 13:14 | SOAPPROG ---
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
--- NOTE | 2017-09-13 13:14 | SOAPPROG ---
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
[2017-09-13] MEDS: DOCUSATE SODIUM 100 MG CAP PO SCH (20:17)
[2017-09-14] MEDS: HYDROCODONE/APAP 5/325 TAB PO PRN (06:31)
[2017-09-14 08:01] VITALS: BP 112/59; PULSE 77; RESP 16; TEMP 96.8; O2SAT 99
[2017-09-14] MEDS: DOCUSATE SODIUM 100 MG CAP PO SCH (08:18)
--- NOTE | 2017-09-14 09:59 | HOSPPROG ---
Hospitalist Progress Note Assessment/Plan: Patient is a 22-year-old gentleman who presented the emergency room with sudden onset of bloody bowel movements. He developed a sense of urgency and had 6 large frantz blood stools. * Meckel's diverticulum with acute GI bleed -status post resection of Meckel's with primary anastomosis * acute severe blood loss anemia -status post 5 units of packed red blood cells * acute allergic reaction to nuts -this occurred during his hospital stay -symptoms resolved with treatment * acute GI bleed * plan. Will discharge home. He will follow up with surgery in 7-10 days for staple removal. Reviewed with the patient his mom signed the symptoms of a continue GI bleed. And to return to the emergency room if this should occur Subjective: lVad is feeling much better today. Objective: Vital Signs Temp Pulse Resp BP Pulse Ox 36.0 C 77 16 112/59 L 99 09/14/17 07:58 09/14/17 07:58 09/14/17 07:58 09/14/17 07:58 09/14/17 07:58 Laboratory Results 09/14/17 08:30 09/12/17 03:00 09/13/17 09/14/17 09/15/17 05:59 05:59 05:59 Intake Total 1052 Balance 1052 PT 15.3 SEC (12.0-15.0) H 09/08/17 15:45 INR 1.21 (0.83-1.16) H 09/08/17 15:45 - Physical Exam Constitutional: no apparent distress, appears nourished, not in pain Eyes: PERRL Ears, Nose, Mouth, Throat: hearing normal Respiratory: no respiratory distress Skin: other (Has a few alfred below the umbilicus incision is well approximated ), No normal color (pale) Musculoskeletal: full muscle strength Neurologic: AAOx3 Psychiatric: interacting appropriately, not anxious ICD10 Worksheet Patient Problems: Problems Problem Status Onset GI bleed Acute
--- NOTE | 2017-09-14 12:26 | SOAPPROG ---
SOAP Progress Note Assessment/Plan: Assessment/Plan: 22yo M with occult GI Bleed s/p lap assisted small bowel resection and Meckelectomy - VSS, HDS on floor - Continues to look good - Pain controlled - Incisions cdi - Home today, would not repeat any blood work unless clinically indicated 09/10/17 09:10 09/11/17 09:21 09/12/17 12:47 09/13/17 13:13 09/14/17 12:25 Subjective: Looks good, tolerating diet Objective: Vital Signs Temp Pulse Resp BP Pulse Ox 36.0 C 77 16 112/59 L 99 09/14/17 07:58 09/14/17 07:58 09/14/17 07:58 09/14/17 07:58 09/14/17 07:58 Laboratory Results 09/14/17 08:30 09/12/17 03:00 09/13/17 09/14/17 09/15/17 05:59 05:59 05:59 Intake Total 1052 Balance 1052 PT 15.3 SEC (12.0-15.0) H 09/08/17 15:45 INR 1.21 (0.83-1.16) H 09/08/17 15:45 ICD10 Worksheet Patient Problems: Problems Problem Status Onset GI bleed Acute
--- NOTE | 2017-09-14 12:35 | ASMTCMCOM ---
CM Note CM Note Notes: Spoke w/pt and mother, F/U appointment made at [facility] for pt. He is scheduled for a 10am appt with financial screening and a 11am appt with MD. Pt advised to bring ID/pay stubs/proof of address. Pt will dc home w/support of mother, CM available for any changes. Date Signed: 09/14/2017 12:34 PM Electronically Signed By:Ragini Herron RN
--- NOTE | 2017-09-14 12:35 | ASMTCMCOM ---
CM Note CM Note Notes: Spoke w/pt and mother, F/U appointment made at [facility] for pt. He is scheduled for a 10am appt with financial screening and a 11am appt with MD. Pt advised to bring ID/pay stubs/proof of address. Pt will dc home w/support of mother, CM available for any changes. Date Signed: 09/14/2017 12:34 PM Electronically Signed By:Ragini Herron RN
--- NOTE | 2017-09-14 12:35 | ASMTCMCOM ---
CM Note CM Note Notes: Spoke w/pt and mother, F/U appointment made at [facility] for pt. He is scheduled for a 10am appt with financial screening and a 11am appt with MD. Pt advised to bring ID/pay stubs/proof of address. Pt will dc home w/support of mother, CM available for any changes. Date Signed: 09/14/2017 12:34 PM Electronically Signed By:Ragini Herron RN
--- NOTE | 2017-09-14 12:47 | GDS ---
[f rep st] DISCHARGE SUMMARY DISCHARGE DIAGNOSES: 1. Meckel diverticulum with acute gastrointestinal bleed. 2. Acute severe blood loss anemia. 3. Acute allergic reaction. CONSULTATION: 1. Dr. Ab Waite. 2. Dr. Vance. BRIEF HISTORY: The patient is a very nice, 22-year-old gentleman without any significant history. He reported that he started having purely frantz, dark, bloody stools with an episode of nausea and vomiting and came to the emergency room for further evaluation. He was first seen and evaluated by Dr. Vance, who recommended that he get an upper and lower endoscopy, as well as a tagged scan study. On 09/08, he had an upper GI, which showed normal stomach and normal duodenum. He had a colonoscopy because of ongoing anemia. It showed blood in the entire examined ileum. Subsequently, he had a GI bleed scan with Nuclear Medicine, and it showed a sentinel bleed at the junction of the 3rd and 4th portion of the duodenum. He was seen and evaluated again by Dr. Vance. He did a small bowel enteroscopy. The source of his bleeding was not noted. Subsequently, he was seen by Dr. Ted Chiu, who did a 3-vessel selective mesenteric arteriography. The findings of this were noted to be normal. The patient continued to bleed. The patient has been raised as a [employer]. Because of the significant drop in his hemoglobin and hematocrit, he did agree to a blood transfusion. At that time, he was sent down to the intensive care unit for close monitoring. He subsequently was seen and evaluated by Dr. Ab Waite, and on 09/11/2017, he had laparoscopic-assisted small bowel resection and a meckelectomy. It was noted that he had a Meckel diverticulum located in the distal ileum. He also did a small bowel resection containing the portion. Since then, the patient has done very well. He will follow up with Dr. Waite in the outpatient setting. Recommending that he stay away from all NSAIDs. HOSPITAL COURSE PER PROBLEM: 1. Meckel diverticulum with acute GI bleed. He is status post resection of Meckel's with primary anastomosis. He will see the surgeon in the outpatient setting. 2. Acute severe blood loss anemia. He received a total of 7 units of packed red blood cells. Today his hemoglobin is 8 and his hematocrit is 24. 3. He had an acute allergic reaction to nuts. This occurred during his hospital stay. He does have an EpiPen at home. His symptoms resolved with treatment. DISCHARGE CONDITION: Stable. Blood pressure is 112/59, O2 sats on room air 99% , respiratory rate is 16, pulse 77, temperature is 36 degrees Celsius. MEDICATIONS AT DISCHARGE: Please see the EMR. DISCHARGE INSTRUCTIONS: 1. To follow up with Dr. Waite in 7-10 days to remove his alfred. 2. To monitor his stools for any bleeding. We reviewed this in detail. 3. Avoid all NSAIDs. 4. Do not drink or drive while on the pain medications. TIME SPENT: Greater than 30 minutes discharging and coordinating his care. /[id number]/MODL MTDD
--- NOTE | 2017-09-14 14:29 | ASDISCHSUM ---
Discharge Information Plan Status:Home with No Needs Medically Cleared to Leave: Discharge Date:09/14/2017 12:43 PM CM D/C Disposition:Home, Routine, Self-Care ADT D/C Disposition:Home, Routine, Self-Care Projected Discharge Date:09/14/2017 12:43 PM Transportation at D/C:Family Discharge Delay Reason: Follow-Up Date:09/14/2017 12:43 PM Discharge Slot: Final Diagnosis: Placement Information Patient Contact Information Contact Name:RAQUEL Relationship:Mother Address: Work Phone: City: [facility] Phone: State/Zip Code: Email: Financial Information Financial Class:Self-Pay Primary Plan Desc:SELF PAY Primary Plan Number: Secondary Plan Desc: Secondary Plan Number: Assessment Information [facility] CM Progress Note CM Note CM Note Notes: Pt. is a 22-year-old man admitted w/ bloody stools and acute blood loss anemia. Pt. w/ hx. hemorrhoids. Pt. noticed bloody stools when he went to the bathroom at work in the [employer] business. [employer] plans to assess Pt. for Medicaid benefits. Currently in self-pay status. Anticipate independent d/c when ready. CM available should d/c POC change. Date Signed: 09/07/2017 02:11 PM Electronically Signed By:Alycia Baker LCSW [facility] CM Progress Note CM Note CM Note Notes: CM Note 09/10/17 12:39 Patient had bleeding the night of 09/09, no bleeding morning 09/10, no clear source of bleed. Patient may need to be transferred to [facility] for more intensive testing, stable now. Spoke to patient's mother who has been very concerned and thankful for medical staff's care. [employer] to evaluate for Medicaid eligibility on Monday. CM to follow. 09/11/17 Patient elected to have surgery at [facility]. Karannf very well. Father and patient have met with [employer]. Patient's mother to stay with him at home after discharge and when better will fly him back to her home in [place]. No other needs at this time. Date Signed: 09/11/2017 04:38 PM Electronically Signed By:Anisa Osman LCSW [facility] CM Progress Note CM Note CM Note Notes: Spoke w/pt and mother, F/U appointment made at [facility] for pt. He is scheduled for a 10am appt with financial screening and a 11am appt with . Pt advised to bring ID/pay stubs/proof of address. Pt will dc home w/support of mother, DASH available for any changes. Date Signed: 09/14/2017 12:34 PM Electronically Signed By:Ragini Herron RN Intervention Information Intervention Type:*Incorrect Registration Date of Service:09/07/2017 10:18 AM Patient Type:Inpatient Staff Member:CHENTE Cruz, Kesha Hours: Discipline: Severity: Comment:
--- NOTE | 2017-09-14 14:29 | ASDISCHSUM ---
Discharge Information Plan Status:Home with No Needs Medically Cleared to Leave: Discharge Date:09/14/2017 12:43 PM CM D/C Disposition:Home, Routine, Self-Care ADT D/C Disposition:Home, Routine, Self-Care Projected Discharge Date:09/14/2017 12:43 PM Transportation at D/C:Family Discharge Delay Reason: Follow-Up Date:09/14/2017 12:43 PM Discharge Slot: Final Diagnosis: Placement Information Patient Contact Information Contact Name:RAQUEL Relationship:Mother Address: Work Phone: City: [facility] Phone: State/Zip Code: Email: Financial Information Financial Class:Self-Pay Primary Plan Desc:SELF PAY Primary Plan Number: Secondary Plan Desc: Secondary Plan Number: Assessment Information [facility] CM Progress Note CM Note CM Note Notes: Pt. is a 22-year-old man admitted w/ bloody stools and acute blood loss anemia. Pt. w/ hx. hemorrhoids. Pt. noticed bloody stools when he went to the bathroom at work in the [employer] business. [employer] plans to assess Pt. for Medicaid benefits. Currently in self-pay status. Anticipate independent d/c when ready. CM available should d/c POC change. Date Signed: 09/07/2017 02:11 PM Electronically Signed By:Alycia Baker LCSW [facility] CM Progress Note CM Note CM Note Notes: CM Note 09/10/17 12:39 Patient had bleeding the night of 09/09, no bleeding morning 09/10, no clear source of bleed. Patient may need to be transferred to [facility] for more intensive testing, stable now. Spoke to patient's mother who has been very concerned and thankful for medical staff's care. [employer] to evaluate for Medicaid eligibility on Monday. CM to follow. 09/11/17 Patient elected to have surgery at [facility]. Karannf very well. Father and patient have met with [employer]. Patient's mother to stay with him at home after discharge and when better will fly him back to her home in [place]. No other needs at this time. Date Signed: 09/11/2017 04:38 PM Electronically Signed By:Anisa Osman LCSW [facility] CM Progress Note CM Note CM Note Notes: Spoke w/pt and mother, F/U appointment made at [facility] for pt. He is scheduled for a 10am appt with financial screening and a 11am appt with . Pt advised to bring ID/pay stubs/proof of address. Pt will dc home w/support of mother, DASH available for any changes. Date Signed: 09/14/2017 12:34 PM Electronically Signed By:Ragini Herron RN Intervention Information Intervention Type:*Incorrect Registration Date of Service:09/07/2017 10:18 AM Patient Type:Inpatient Staff Member:CHENTE Cruz, Kesha Hours: Discipline: Severity: Comment:
--- NOTE | 2017-09-14 14:29 | ASDISCHSUM ---
Discharge Information Plan Status:Home with No Needs Medically Cleared to Leave: Discharge Date:09/14/2017 12:43 PM CM D/C Disposition:Home, Routine, Self-Care ADT D/C Disposition:Home, Routine, Self-Care Projected Discharge Date:09/14/2017 12:43 PM Transportation at D/C:Family Discharge Delay Reason: Follow-Up Date:09/14/2017 12:43 PM Discharge Slot: Final Diagnosis: Placement Information Patient Contact Information Contact Name:RAQUEL Relationship:Mother Address: Work Phone: City: [facility] Phone: State/Zip Code: Email: Financial Information Financial Class:Self-Pay Primary Plan Desc:SELF PAY Primary Plan Number: Secondary Plan Desc: Secondary Plan Number: Assessment Information [facility] CM Progress Note CM Note CM Note Notes: Pt. is a 22-year-old man admitted w/ bloody stools and acute blood loss anemia. Pt. w/ hx. hemorrhoids. Pt. noticed bloody stools when he went to the bathroom at work in the [employer] business. [employer] plans to assess Pt. for Medicaid benefits. Currently in self-pay status. Anticipate independent d/c when ready. CM available should d/c POC change. Date Signed: 09/07/2017 02:11 PM Electronically Signed By:Alycia Baker LCSW [facility] CM Progress Note CM Note CM Note Notes: CM Note 09/10/17 12:39 Patient had bleeding the night of 09/09, no bleeding morning 09/10, no clear source of bleed. Patient may need to be transferred to [facility] for more intensive testing, stable now. Spoke to patient's mother who has been very concerned and thankful for medical staff's care. [employer] to evaluate for Medicaid eligibility on Monday. CM to follow. 09/11/17 Patient elected to have surgery at [facility]. Karannf very well. Father and patient have met with [employer]. Patient's mother to stay with him at home after discharge and when better will fly him back to her home in [place]. No other needs at this time. Date Signed: 09/11/2017 04:38 PM Electronically Signed By:Anisa Osman LCSW [facility] CM Progress Note CM Note CM Note Notes: Spoke w/pt and mother, F/U appointment made at [facility] for pt. He is scheduled for a 10am appt with financial screening and a 11am appt with . Pt advised to bring ID/pay stubs/proof of address. Pt will dc home w/support of mother, DASH available for any changes. Date Signed: 09/14/2017 12:34 PM Electronically Signed By:Ragini Herron RN Intervention Information Intervention Type:*Incorrect Registration Date of Service:09/07/2017 10:18 AM Patient Type:Inpatient Staff Member:CHENTE Cruz, Kesha Hours: Discipline: Severity: Comment:
== END 2017-09-14 12:43 | disposition home or self-care (01) | DRG 330 ==
LOC: INTOOBSV 03:13 → F3E 04:05 → OBSVTOIN 09-08 16:45 → F2N 09-08 19:25 → F3E 09-12 18:52
PROVIDERS: ADMIT Family Medicine; ATTEND Family Medicine
PROC: 0DJ08ZZ Inspection of Upper Intestinal Tract, Via Natural or Artificial Opening Endoscopic (ICD-10-PCS; 2017-09-08)
PROC: B4141ZZ Fluoroscopy of Superior Mesenteric Artery using Low Osmolar Contrast (ICD-10-PCS; 2017-09-08)
PROC: 0DJD8ZZ Inspection of Lower Intestinal Tract, Via Natural or Artificial Opening Endoscopic (ICD-10-PCS; 2017-09-08 08:00)
PROC: 0DJ08ZZ Inspection of Upper Intestinal Tract, Via Natural or Artificial Opening Endoscopic (ICD-10-PCS; 2017-09-08 08:00)
PROC: 30233N1 Transfusion of Nonautologous Red Blood Cells into Peripheral Vein, Percutaneous Approach (ICD-10-PCS; 2017-09-09)
PROC: 02HV33Z Insertion of Infusion Device into Superior Vena Cava, Percutaneous Approach (ICD-10-PCS; 2017-09-10)
PROC: B4141ZZ Fluoroscopy of Superior Mesenteric Artery using Low Osmolar Contrast (ICD-10-PCS; 2017-09-10)
PROC: 0DB80ZZ Excision of Small Intestine, Open Approach (ICD-10-PCS; principal; 2017-09-10 19:00)
PROC: 0DJD4ZZ Inspection of Lower Intestinal Tract, Percutaneous Endoscopic Approach (ICD-10-PCS; principal; 2017-09-10 19:00)
DX: Q43.0 Meckel's diverticulum (displaced) (hypertrophic) (principal); K92.2 Gastrointestinal hemorrhage, unspecified; D62 Acute posthemorrhagic anemia; I95.9 Hypotension, unspecified; T78.1XXA Other adverse food reactions, not elsewhere classified, initial encounter; Z87.891 Personal history of nicotine dependence
CPT/HCPCS: 96365; 96366; A9512; C1751; C1760; C1769; C1894; G0378; J0171; J1100; J1170; J1200; J1335; J1610; J1642; J1644; J2060; J2250; J2310; J2370; J2405; J2704; J2710; J2916; J2997; J3010; P9016; P9021; Q9967